=== PATIENT | female | born 1965 | race Native Hawaiian/Other Pacific Islander ===

== ENCOUNTER 2018-07-02 12:41 | Day surgery (SDC) | payer BC ==
[2018-06-27 13:45] VITALS: BMI 25.0
[2018-07-02 13:29] LABS: BASO # 0.01 K/mm3 (0.0-2.0); BASO % 0.1 % (0.0-3.0); EOS % 0.3 % (1.5-5.0); GRAN # 3.43 (1.4-6.5); GRAN % 49.9 % (50.0-68.0); HEMOGLOBIN 10.2 g/dL (12.0-16.0); LYMPH # 2.9 (1.2-3.4); LYMPH % 41.6 % (22.0-35.0); MEAN CELL VOLUME 62.8 fl (80.0-105.0); MEAN CORPUSCULAR HEMOGLOBIN 19.8 pg (25.0-35.0); MEAN CORPUSCULAR HGB CONC 31.6 g/dl (31.0-37.0); MEAN PLATELET VOLUME 9.7 fl (7.0-11.0); MONO # 0.6 (0.1-0.6); MONO % 8.1 % (1.0-6.0); RBC 5.14 10^6/uL (3.5-6.1); RED CELL DISTRIBUTION WIDTH 15.3 % (11.5-14.5); WHITE BLOOD COUNT 6.9 10^3/uL (4.5-11.0)
[2018-07-02 13:32] LABS: INR 1.11; PARTIAL THROMBOPLASTIN TIME 36.9 Seconds (25.1-36.5); PROTHROMBIN TIME 12.8 SECONDS (9.4-12.5)
[2018-07-02 13:33] LABS: BLOOD UREA NITROGEN 16 mg/dL (7-21); CALCIUM 9.6 mg/dL (8.4-10.5); GFR NON-AFRICAN AMERICAN > 60
[2018-07-02] MEDS ORDERED: Midazolam 2 MG/2 ML VIAL ONE (16:07)
[2018-07-02] MEDS ORDERED: Lidocaine 1% Inj (20ml) ONE (16:07)
[2018-07-02] MEDS ORDERED: Oxycodone/Acetaminophen 5/325 mg Tab PO PRN (17:20)
[2018-07-02] MEDS ORDERED: Sodium Chloride 0.45% 1,000 ML IV SCH (17:30)
[2018-07-02 17:43] VITALS: O2SAT 98
[2018-07-02] MEDS ORDERED: Midazolam 2 MG/2 ML VIAL IVP ONE (17:51)
[2018-07-02 18:00] VITALS: RESP 18
[2018-07-02 18:48] VITALS: TEMP 98.2
[2018-07-02 19:04] VITALS: BP 128/70; PULSE 76
--- NOTE | 2018-07-02 19:32 | CT ---
PROCEDURE: CT guided pelvic bone marrow aspiration and biopsy. HISTORY: [facility] PHYSICIAN(S): Lino Woo MD. TECHNIQUE: The relative risks and indications of the procedure were explained to the patient and consent obtained. The patient was placed prone on the CT scanner and preliminary images through the pelvis obtained. Conscious sedation and monitoring were provided throughout the procedure by a nurse. The right posterior superior iliac spine was selected for biopsy. The areas prepped and draped usual sterile fashion. 1 percent xylocaine was used to anesthetize the skin soft tissues and periosteum. And on control needle was advanced to the right posterior superior iliac spine is position confirmed with CT. The needle was advanced through the cortex. A bone marrow aspiration and blood clot was obtained. Finally a long segment core biopsy was performed with the on control needle. Slides were prepared by Dr. Ulrich IMPRESSION: 1. CT-guided pelvic bone marrow aspiration and biopsy as described above.
== END 2018-07-02 19:05 | disposition home or self-care (01) ==
LOC: SDS 12:41
PROVIDERS: ATTEND Radiology Vascular & Interventional Radiology
DX: C88.0 Waldenstrom macroglobulinemia (principal)
CPT/HCPCS: 36415; 38221; 80048; 85025; 85610; 85730; 99152; 99153; J2250; J2405; J3010; J7030

== ENCOUNTER 2018-08-22 12:10 | Outpatient (CLI) | payer BC | END 2018-08-22 12:11 | disposition home or self-care (01) | LOC: OPLAB 12:10 ==

== ENCOUNTER 2018-08-22 12:25 | Inpatient (IN) | payer BC ==
--- NOTE | 2018-08-22 14:03 | CP.PCM.CON ---
<Yuri Nixon - Last Filed: 08/22/18 14:49> History of Present Illness - History of Present Illness History of Present Illness: Robe Nixon PGY2 - ICU Consult Note Consultation: Plasmapheresis HPI: Patient is a 52 year old female with past medical history of macroglobulinemia who presented ot [facility] from her Configuration Release Manager Dr. Fernandez's office for plasmapheresis. Patient reports 2 week history of headaches without nausea, vomiting, neck stiffness, change in vision, weakness or sensory loss. Patient denies anorexia, peripheral neuropathy, weight loss, fever. Patient 12 point ROS benign other than headache and chest discomfort for which she occasionally feels. She describes sensation as intermittent and without respiratory difficulties. Patient reports she follows with Dr. Newman who first discovered elevated protein in her routine blood work 2 years prior. Patient indicates she has had previous bone marrow biopsy with Dr. Fernandez. PMH: Waldenstrom Macroglobulinemia PSH: Denies FMH: Brother from gastric cancer SOCHx: Denies smoking, ETOH, illicit drugs ALL: NKDA MEDS: Denies PMD: Dr. Newman Heme/Onc: Dr. Fernandez Review of Systems - Review of Systems All systems: reviewed and no additional remarkable complaints except (as mentioned in HPI) Past Patient History - Past Social History Smoking Status: Never Smoked Alcohol: None Drugs: Denies - CARDIAC Hx Pacemaker: No - NEUROLOGICAL Hx Paralysis: No - HEMATOLOGICAL/ONCOLOGICAL Hx Blood Transfusions: No - MUSCULOSKELETAL/RHEUMATOLOGICAL Hx Musculoskeletal Disorders: No - PSYCHIATRIC Hx Emotional Abuse: No Hx Physical Abuse: No Hx Substance Use: No - SURGICAL HISTORY Hx Surgeries: Yes - ANESTHESIA Hx Anesthesia Reactions: No Hx Malignant Hyperthermia: No Meds Allergies/Adverse Reactions: Allergies Allergy/AdvReac Type Severity Reaction Status Date / Time No Known Allergies Allergy Verified 06/27/18 13:45 Physical Exam - Constitutional Appears: Well, No Acute Distress - Head Exam Head Exam: ATRAUMATIC, NORMAL INSPECTION, NORMOCEPHALIC - Eye Exam Eye Exam: EOMI, PERRL - ENT Exam ENT Exam: Mucous Membranes Moist - Neck Exam Neck exam: Positive for: Full Rom - Respiratory Exam Respiratory Exam: Clear to Auscultation Bilateral, NORMAL BREATHING PATTERN. absent: Rales, Rhonchi - Cardiovascular Exam Cardiovascular Exam: REGULAR RHYTHM, +S1, +S2 - GI/Abdominal Exam GI & Abdominal Exam: Normal Bowel Sounds, Soft. absent: Guarding, Rebound, Rigid - Extremities Exam Extremities exam: Positive for: normal inspection. Negative for: calf tenderness, pedal edema, tenderness - Neurological Exam Neurological exam: Alert, Normal Gait, Oriented x3, Reflexes Normal - Psychiatric Exam Psychiatric exam: Normal Affect, Normal Mood - Skin Skin Exam: Dry, Intact, Normal Color, Warm Results - Labs Result Diagrams: 08/22/18 14:02 08/22/18 14:02 Assessment & Plan - Assessment and Plan (Free Text) Assessment: 52 year old female with macroglobulinemia who presented to [facility] upon request f rom her Heme/Onc physician, Dr. Fernandez for plasmapheresis. Plan: Neuro: AAOx3 Motor and Sensory grossly intact Cardio: VSS Maintain MAP>65 Pulm: Maintain SaO2 > 92% GI: GI ppx with pepcid Regular diet Renal: Maintain euvolemia, replete electrolytes Heme/Onc: Hx of Waldenstrom Macroglobulinemia - Plan for plasmapheresis today - Heme/onc with Dr. Fernandez consulted and following - IR with Dr. Woo consulted for placement of shiley catheter, follow up recs - CBC, CMP - Plasmapheresis as per Heme/Onc ID: Afebrile, no leukocytes on admission Monitor VS Psych: Stable mood and effect DVT/GI ppx: Heparin Pepcid Patient seen, case and plan discussed with attending, Dr. Godinez - Date & Time Date: 08/22/18 Time: 14:04 <Yunier Godinez - Last Filed: 08/22/18 15:51> Results - Labs Result Diagrams: 08/22/18 14:02 08/22/18 14:02 Labs: Laboratory Results - last 24 hr 08/22/18 08/22/18 08/22/18 12:00 12:00 12:00 WBC RBC Hgb Hct MCV MCH MCHC RDW Plt Count MPV Gran % Lymph % (Auto) Ford % (Auto) Eos % (Auto) Baso % (Auto) Gran # Lymph # (Auto) Ford # (Auto) Eos # (Auto) Baso # (Auto) PT 12.0 INR 1.04 APTT 29.2 Sodium 139 Potassium 3.8 Chloride 103 Carbon Dioxide 28 Anion Gap 12 BUN 16 Creatinine 0.5 L Est GFR ( Amer) > 60 Est GFR (Non-Af Amer) > 60 Random Glucose 98 Uric Acid 5.5 Calcium 9.6 Phosphorus 3.5 Magnesium 1.8 Iron 105 TIBC 320 % Saturation 33 Total Bilirubin 0.3 AST 29 ALT 22 Alkaline Phosphatase 72 Lactate Dehydrogenase 373 Troponin I Total Protein 8.9 H Albumin 4.4 Globulin 4.5 Albumin/Globulin Ratio 1.0 L 08/22/18 08/22/18 08/22/18 14:02 14:02 14:02 WBC 5.6 RBC 5.46 Hgb 10.9 L Hct 34.5 L MCV 63.2 L MCH 20.0 L MCHC 31.6 RDW 15.5 H Plt Count 399 MPV 10.2 Gran % 52.4 Lymph % (Auto) 39.5 H Ford % (Auto) 7.5 H Eos % (Auto) 0.4 L Baso % (Auto) 0.2 Gran # 2.92 Lymph # (Auto) 2.2 Ford # (Auto) 0.4 Eos # (Auto) 0.0 Baso # (Auto) 0.01 PT 12.4 INR 1.08 APTT Sodium 140 Potassium 3.5 L Chloride 103 Carbon Dioxide 27 Anion Gap 13 BUN 16 Creatinine 0.5 L Est GFR ( Amer) > 60 Est GFR (Non-Af Amer) > 60 Random Glucose 93 Uric Acid Calcium 10.0 Phosphorus Magnesium Iron TIBC % Saturation Total Bilirubin 0.4 AST 27 ALT 14 Alkaline Phosphatase 83 Lactate Dehydrogenase Troponin I < 0.01 Total Protein 9.8 H Albumin 4.8 Globulin 4.9 Albumin/Globulin Ratio 1.0 L Assessment & Plan - Assessment and Plan (Free Text) Plan: Patient seen and examined on rounds, with resident, agree with note with following additions/exceptions: Patient is 52yo female with past medical history of macroglobulinemia who presented ot [facility] from her Configuration Release Manager Dr. Fernandez's office for plasmapheresis. Patient reports 2 week history of headaches without nausea, vomiting, neck stiffness, change in vision, weakness or sensory loss. No other constitutional symptoms. Patient to have IR guided Shiley put in by Dr Woo Plasmapharesis today as per hematology GI ppx DVT ppx Monitor in MICU
[2018-08-22 14:07] LABS: BASO # 0.01 K/mm3 (0.0-2.0); BASO % 0.2 % (0.0-3.0); EOS % 0.4 % (1.5-5.0); GRAN # 2.92 (1.4-6.5); GRAN % 52.4 % (50.0-68.0); HEMOGLOBIN 10.9 g/dL (12.0-16.0); LYMPH # 2.2 (1.2-3.4); LYMPH % 39.5 % (22.0-35.0); MEAN CELL VOLUME 63.2 fl (80.0-105.0); MEAN CORPUSCULAR HGB CONC 31.6 g/dl (31.0-37.0); MEAN PLATELET VOLUME 10.2 fl (7.0-11.0); MONO # 0.4 (0.1-0.6); MONO % 7.5 % (1.0-6.0); RBC 5.46 10^6/uL (3.5-6.1); RED CELL DISTRIBUTION WIDTH 15.5 % (11.5-14.5); WHITE BLOOD COUNT 5.6 10^3/uL (4.5-11.0)
[2018-08-22 14:12] LABS: INR 1.08; PROTHROMBIN TIME 12.4 SECONDS (9.4-12.5)
[2018-08-22 14:20] LABS: ALBUMIN 4.8 g/dL (3.0-4.8); ALT/SGPT 14 U/L (7-56); AST/SGOT 27 U/L (14-36); BLOOD UREA NITROGEN 16 mg/dL (7-21); GFR NON-AFRICAN AMERICAN > 60
[2018-08-22 14:31] LABS: TROPONIN I < 0.01 ng/mL
[2018-08-22 14:37] LABS: INR 1.04; PARTIAL THROMBOPLASTIN TIME 29.2 Seconds (25.1-36.5)
[2018-08-22 14:44] VITALS: BMI 29.2
[2018-08-22 14:49] LABS: IRON 105 ug/dL (45-180)
[2018-08-22 14:51] LABS: ALBUMIN 4.4 g/dL (3.0-4.8); ALT/SGPT 22 U/L (7-56); AST/SGOT 29 U/L (14-36); BLOOD UREA NITROGEN 16 mg/dL (7-21); CALCIUM 9.6 mg/dL (8.4-10.5); GFR NON-AFRICAN AMERICAN > 60; URIC ACID 5.5 mg/dL (2.5-6.2)
[2018-08-22 14:58] LABS: % IRON SATURATION 33 % (20-55); TOTAL IRON BINDING CAPACITY 320 ug/dL (265-497)
[2018-08-22] MEDS ORDERED: Lidocaine 2% Inj (20ml) ONE (15:59)
[2018-08-22] MEDS ORDERED: Iodixanol 320 MG/ML 100 ML BOTTLE IV ONE (15:59)
[2018-08-22] MEDS ORDERED: Midazolam 2 MG/2 ML VIAL ONE ×2 (16:25→16:36)
[2018-08-22] MEDS ORDERED: Influenza Vaccine 60 mcg/0.5 mL SYR (4YR UP) IM ONE (19:41)
[2018-08-22] MEDS ORDERED: Pneumococcal 23-Valent Vaccine IM ONE (19:41)
--- NOTE | 2018-08-22 20:03 | VASCULAR ---
Date of service: 08/22/2018 PROCEDURE: Ultrasound fluoroscopically placed temporary right IJ dialysis catheter HISTORY: Waldenstroms's. Needs dialysis catheter for plasmapheresis COMPARISON: TECHNIQUE: Thought of risks and indications of the procedure explained the patient and family consent obtained. The patient was placed supine on the arteriogram table in the right neck prepped and draped usual sterile fashion. Conscious sedation monitoring were provided throughout the procedure by a nurse. Under ultrasound guidance, the right internal jugular vein was punctured with a micropuncture set. A 0.035 glidewire was advanced in the IVC. Sequential dilatation was performed with placement of a 15.5 [place] temporary dialysis catheter. Its tip is in the right atrium. The catheter flushed and injected easily. The patient tolerated the procedure well FINDINGS: IMPRESSION: Ultrasound fluoroscopically placed temporary right IJ dialysis catheter
--- NOTE | 2018-08-23 04:17 | HP ---
DATE OF EXAM: 08/22/2018 HISTORY OF PRESENT ILLNESS: This is a 52-year-old female with known diagnosis of Waldenstrom macroglobulinemia, was recently diagnosed increased serum viscosity and increased IgM of greater than 5 g. He was admitted electively to the hospital because of concerns of increasing serum viscosity related complications and sequelae with treatment where the viscosity could rise even further in reaction to the chemotherapy. Plan is to give the patient intravenous rituximab and bendamustine and then switch over to rituximab and ibrutinib as an outpatient. Because of this concern the patient was electively admitted for infection for central line, plasmapheresis and do at least 2 to 3 exchanges following which we would chemotherapy rituximab 375 mg/m2 intravenously over 5 to 6 hours as tolerated along with bendamustine given 60/m2 given on day #1 and #2 of a chemotherapy cycle and if tolerated this cycle will be given at least 21 days with a growth factor support post chemotherapy. The patient in general has been having increasing malaise, diffuse aches and pains over the last several weeks. The patient denies any history of anorexia, peripheral neuropathy, weight loss, fever. The patient's 12-point review of systems is benign other than headache and chest discomfort, which appears occasionally. She describes a sensation without any respiratory difficulties, but some degree where she become conscious of her breathing. The patient follows up with Dr. Deonte Newman, who is a primary medical doctor who will see her twice a year and was noted to have an elevated protein about 2 years prior to recent values with the IgM protein level have been rising. The patient had been advised to see a doctor, but she was procrastinating as she was feeling good. PAST MEDICAL HISTORY: The fact that the patient was seen by me at the end of 05/2018, when the patient was initially seen for an elevated protein with protein value 4055 mg/dL IgM with an M spike of 2.5. 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 In the workup the patient was also noted to have urine esterase positive plus occult blood was positive in the urine with 11 to 30 white cells based on this, she was asked to see a urologist while we were trying to do bone marrow aspiration biopsy. Urologist did a evaluation in the office including cystoscopy, no local pathology and the feeling was that the bleeding could be related to underlying diagnosis of Waldenstrom's. The patient had a breast CT scan which showed no overt abnormalities. She had a bone marrow aspiration biopsy done, which reveal the following. The patient's bone marrow aspiration biopsy was done and on 07/02/2018, showed a variable normocellular for age bone marrow being mature trilineage hematopoiesis and extensive greater than 50% of cellularity involvement by B-cell lymphoproliferative disorder intermixed with clonal plasma cell. With the clinical features of Waldenstrom macroglobulinemia, the possibility of lymphoplasmacytic lymphoma is favor. 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 Chromosome 18 is a sole anomaly of the abnormality is really specific and has been reported in most lymphoproliferative disorders and seen in patient's with 15% with Waldenstrom macroglobulinemia. The patient in addition to this had other testing done as well. 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 The patient based on this was diagnosed as having Waldenstrom macroglobulinemia with increased serum viscosity. Serum viscosity that was done on 08/16/2018, revealed a serum viscosity to be elevated at 2.1, which is high and the IgM vaccination reveal the IgM quantification to be 5540 mg/dL of IgM. The patient had workup for hepatitis screening and hepatitis screening for A, E, antigen, surface antigen, B core antibody, and C were all negative. HIV was negative. The patient also had a urine cytology done by her urologist and that was also negative for any high grade urothelial neoplasia. Based on this we felt pretty comfortable that we should proceed with initiation of plasmapheresis prior to initiation of chemotherapy. There is some data and evidence in the literature the rituximab can bump up the values of IgM during the course of initiation with rituximab specially when the IgM values are greater than 4.5 grams. SOCIAL HISTORY: Noncontributory. FAMILY HISTORY: The patient brother from gastric cancer. She has a large family with 4 or 5 sisters, all of them in reasonably good health. ALLERGIES: THE PATIENT HAS NO KNOWN ALLERGIES. MEDICATIONS: The patient specifically not on any medicines. PAST SURGICAL HISTORY: Last colonoscopy was done recently which was negative. The patient has history of with 2 boys. She had history of back problems discogenic disease. She has never been hospitalized. The patient had an ultrasound of the liver, which showed hepatic steatosis. On PET/CT as I mentioned, which was done in outpatient imaging center showed no evidence of enlarged hypermetabolic lymph nodes. The abdomen, pelvis, and inguinal region, no ascites seen and there is no evidence of hypermetabolic osseous lesions as well on the examination of the bone and the bone marrow. REVIEW OF SYSTEMS: systems review of system was done, everything is negative expect what is mentioned in the HPI. MUSCULOSKELETAL: The patient does complains significant aches and pains involving multiple joints and between the shoulders, the elbows, the knees, and the hips more recently over the last few . Except for the patient has had no major surgical history. She has had no anesthetic reactions in the past. PHYSICAL EXAMINATION: GENERAL: The patient is awake, alert, and oriented in no significant distress. VITAL SIGNS: Stable. On admission; heart rate is 84, respirations 20 per minute, O2 sat is 99% on room air, blood pressure on admission is 143/110. HEENT: Head is normocephalic, atraumatic. Conjunctivae pale. Sclerae are anicteric. Pupils are equal reactive to light and accommodation. The patient denies any visual issues at this point in time. Examination of the oropharynx reveal no oropharyngeal lesion. Tongue is moist. No ulcerations are noted. NECK: Supple. There is no adenopathy. No jugular venous distension noted. LUNGS: Clear to percussion and auscultation. CARDIOVASCULAR: Reveals PMI in the fifth intercostal space inside the midclavicular line. S1, S2 normal. No gallop or murmur is heard. ABDOMEN: Soft, nontender. Liver and spleen not palpable. Bowel sounds are present. No rebound, rigidity, or guarding is noted. EXTREMITIES: Reveals no cyanosis, clubbing, or edema. NEUROLOGIC: Reveals no focal deficits. The patient denies any history of seizures. Plantar are flexors. GENITOURINARY: Deferred. RECTAL: Deferred. LABORATORY DATA: From today; reveals white count of 5.6, hemoglobin 10.9, hematocrit 34.5, MCV of 63.2, and platelet count of 399,000. Coags are within normal limits. PT is 12.4, INR is 1.08, fibrinogen is 303. Electrolytes reveal sodium of 140, K is slightly low at 3.5, BUN and creatinine is normal, total protein is 9.8 with albumin of 4.8, AG ratio is 1. ASSESSMENT, NOTES, AND PLAN: The patient has Waldenstrom macroglobulinemia, lymphoplasmacytic lymphoma variant. The patient has an elevated serum viscosity with an elevated IgM of more than 5600 mg. Based on these findings, the patient has been setup for insertion of a central line or a dialysis catheter following, which the patient will get plasmapheresis. Plan is to exchange one plasma exchange for every other day and the volume that will be exchanged will be about at 3 liters and the replacement volume will be 5% albumin in study. The patient is also going to get gram of calcium gluconate as the citrate in the for the phoresis that could artifactually lower the calcium. I have instructed the patient that if she has any perioral numbness or anesthesia or tingling and numbness or sensation of feeling cold, do let us know. We are going to monitor the patient very carefully every 15 minutes during the entire course of the plasmapheresis. Duration time for the plasmapheresis was about 72 to 75 minutes. The patient will be monitored for any hemodynamic changes during this process. We have requested for about 2.5 or 3 grams of albumin during this whole process, 5% albumin. It is preferred twice of 5% albumin along with saline for plasma exchange. Since the patient's IgM is elevated 75% of the IgM is extravascular, so at least 2 exchanges will deplete the IgM values by more than 60%, so 3 should help us a lot while we are initiating systemic chemotherapy. The patient going to be getting rituximab and bendamustine tomorrow and she is also going to get bendamustine the day after and plan is to give her exchange paresis on day #1, day #3, and day #5 , so three times every other day. While in again one plasma exchange with exchange of 3 liters. I have discussed my findings in detail with the patient and her entire family, consent for the plasmapheresis was obtained. Consent for systemic chemotherapy was obtained. The patient has agreed to start her prophylactically on IV PPI. She is going to be on a cardiac diet. We are going to consult Dr. Newman. We are going to check her coags every day along with CBC and chemistry on a daily basis. Routine post exam instructions have been given to the patient. The patient going to be monitored very carefully over the next 3 to 5 days. I have instructed the patient that we will monitor her very carefully. I am going to put in consult for the home health nurse licensed practical to watch for fluid electrolyte balances as well. Kendall Fernandez MD
[2018-08-23 06:23] LABS: BASO # 0.01 K/mm3 (0.0-2.0); BASO % 0.2 % (0.0-3.0); EOS % 0.2 % (1.5-5.0); GRAN # 2.62 (1.4-6.5); GRAN % 53.7 % (50.0-68.0); LYMPH # 1.8 (1.2-3.4); LYMPH % 37.1 % (22.0-35.0); MEAN CELL VOLUME 62.6 fl (80.0-105.0); MEAN CORPUSCULAR HEMOGLOBIN 19.6 pg (25.0-35.0); MEAN CORPUSCULAR HGB CONC 31.3 g/dl (31.0-37.0); MEAN PLATELET VOLUME 10.1 fl (7.0-11.0); MONO # 0.4 (0.1-0.6); MONO % 8.8 % (1.0-6.0); RBC 5.11 10^6/uL (3.5-6.1); RED CELL DISTRIBUTION WIDTH 15.3 % (11.5-14.5); WHITE BLOOD COUNT 4.9 10^3/uL (4.5-11.0)
[2018-08-23 06:31] LABS: INR 1.26; PROTHROMBIN TIME 14.5 SECONDS (9.4-12.5)
--- NOTE | 2018-08-23 08:08 | CP.CCUPN ---
<Yuri Nixon - Last Filed: 08/23/18 11:57> CCU Subjective - Physician Review Subjective (Free Text): 08/23/18 08:27 Robe Nixon PGY2 - ICU Progress Note Patient seen and examined this AM. No acute events overnight. Patient tolerated plasmapheresis last evening. Reports continued fatigue and headache symptoms from admission. Patient denies shortness of breath, chest pain, abdominal pain, weakness, sensory deficits, perioral numbness, tingling in hands or feet. CCU Objective - Vital Signs / Intake & Output Vital Signs (Last 4 hours): Vital Signs Temp Pulse Resp BP Pulse Ox 08/23/18 06:00 98.5 F 87 20 107/39 L 97 Intake and Output (Last 8hrs): Intake & Output 08/22/18 08/23/18 08/23/18 22:59 06:59 14:59 Intake Total 0 Balance 0 Weight 160 lb 160 lb Intake: Oral 0 Other: Voiding Method Toilet # Bowel Movements 0 - Physical Exam Head: Positive for: Atraumatic, Normocephalic Pupils: Positive for: PERRL Extroacular Muscles: Positive for: EOMI Conjunctiva: Positive for: Normal Mouth: Positive for: Moist Mucous Membranes Neck: Positive for: Normal Range of Motion. Negative for: JVD Respiratory/Chest: Positive for: Clear to Auscultation, Good Air Exchange, Respiratory Distress, Accessory Muscle Use Cardiovascular: Positive for: Regular Rate and Rhythm, Normal S1, S2. Negative for: Murmurs Abdomen: Positive for: Normal Bowel Sounds. Negative for: Tenderness, Distention, Peritoneal Signs, Rebound, Guarding Upper Extremity: Positive for: Normal ROM. Negative for: Cyanosis, Edema, Tenderness, Swelling, Erythema Lower Extremity: Positive for: Normal ROM. Negative for: Normal Inspection, Edema, Lisa's Sign, Tenderness, Swelling Neurological: Positive for: GCS=15, CN II-XII Intact, Speech Normal, Motor Func Grossly Intact, Normal Sensory Function Skin: Positive for: Warm, Dry Psychiatric: Positive for: Alert, Oriented x 3, Normal Insight, Normal Concentration - Medications Active Medications: Active Medications Generic Name Dose Route Start Last Admin Trade Name Freq PRN Reason Stop Dose Admin Albumin Human 3,000 mls @ 2,000 mls/hr 08/22/18 17:00 08/22/18 18:27 Albumin Human 5% (12.5 Gm/250 Ml) IV 08/26/18 18:29 2,000 mls/hr QOD@1700 LINDA Administration Calcium Gluconate 1,000 mg/ 110 mls @ 146.667 mls/hr 08/22/18 17:15 08/22/18 18:34 Sodium Chloride IVPB 08/26/18 10:44 146.667 mls/hr QOD LINDA Administration Pantoprazole Sodium 20 mg 08/22/18 22:00 Protonix Inj IVP Q12 LINDA - Patient Studies Lab Studies: Lab Studies 08/23/18 08/23/18 08/22/18 Range/Units 05:30 05:30 15:00 WBC 4.9 (4.5-11.0) 10^3/uL RBC 5.11 (3.5-6.1) 10^6/uL Hgb 10.0 L (12.0-16.0) g/dL Hct 32.0 L (36.0-48.0) % MCV 62.6 L (80.0-105.0) fl MCH 19.6 L (25.0-35.0) pg MCHC 31.3 (31.0-37.0) g/dl RDW 15.3 H (11.5-14.5) % Plt Count 302 (120.0-450.0) 10^3/uL MPV 10.1 (7.0-11.0) fl Gran % 53.7 (50.0-68.0) % Lymph % (Auto) 37.1 H (22.0-35.0) % [place] % (Auto) 8.8 H (1.0-6.0) % Eos % (Auto) 0.2 L (1.5-5.0) % Baso % (Auto) 0.2 (0.0-3.0) % Gran # 2.62 (1.4-6.5) Lymph # (Auto) 1.8 (1.2-3.4) [place] # (Auto) 0.4 (0.1-0.6) Eos # (Auto) 0.0 (0.0-0.7) Baso # (Auto) 0.01 (0.0-2.0) K/mm3 PT 14.5 H (9.4-12.5) SECONDS INR 1.26 APTT 31.0 (25.1-36.5) Seconds Fibrinogen 303 (200-400) mg/dl Sodium (132-148) mmol/L Potassium (3.6-5.0) mmol/L Chloride (98-107) mmol/L Carbon Dioxide (21-33) mmol/L Anion Gap (10-20) BUN (7-21) mg/dL Creatinine (0.7-1.2) mg/dl Est GFR ( Amer) Est GFR (Non-Af Amer) Random Glucose (70-110) mg/dL Uric Acid (2.5-6.2) mg/dL Calcium (8.4-10.5) mg/dL Phosphorus (2.5-4.5) mg/dL Magnesium (1.7-2.2) mg/dL Iron (45-180) ug/dL TIBC (265-497) ug/dL % Saturation (20-55) % Total Bilirubin (0.2-1.3) mg/dL AST (14-36) U/L ALT (7-56) U/L Alkaline Phosphatase (38-126) U/L Lactate Dehydrogenase (333-699) U/L Troponin I ng/mL Total Protein (5.8-8.3) g/dL Albumin (3.0-4.8) g/dL Globulin gm/dL Albumin/Globulin Ratio (1.1-1.8) 08/22/18 08/22/18 08/22/18 Range/Units 14:02 14:02 14:02 WBC 5.6 (4.5-11.0) 10^3/uL RBC 5.46 (3.5-6.1) 10^6/uL Hgb 10.9 L (12.0-16.0) g/dL Hct 34.5 L (36.0-48.0) % MCV 63.2 L (80.0-105.0) fl MCH 20.0 L (25.0-35.0) pg MCHC 31.6 (31.0-37.0) g/dl RDW 15.5 H (11.5-14.5) % Plt Count 399 (120.0-450.0) 10^3/uL MPV 10.2 (7.0-11.0) fl Gran % 52.4 (50.0-68.0) % Lymph % (Auto) 39.5 H (22.0-35.0) % [place] % (Auto) 7.5 H (1.0-6.0) % Eos % (Auto) 0.4 L (1.5-5.0) % Baso % (Auto) 0.2 (0.0-3.0) % Gran # 2.92 (1.4-6.5) Lymph # (Auto) 2.2 (1.2-3.4) [place] # (Auto) 0.4 (0.1-0.6) Eos # (Auto) 0.0 (0.0-0.7) Baso # (Auto) 0.01 (0.0-2.0) K/mm3 PT 12.4 (9.4-12.5) SECONDS INR 1.08 APTT (25.1-36.5) Seconds Fibrinogen (200-400) mg/dl Sodium 140 (132-148) mmol/L Potassium 3.5 L (3.6-5.0) mmol/L Chloride 103 (98-107) mmol/L Carbon Dioxide 27 (21-33) mmol/L Anion Gap 13 (10-20) BUN 16 (7-21) mg/dL Creatinine 0.5 L (0.7-1.2) mg/dl Est GFR ( Amer) > 60 Est GFR (Non-Af Amer) > 60 Random Glucose 93 (70-110) mg/dL Uric Acid (2.5-6.2) mg/dL Calcium 10.0 (8.4-10.5) mg/dL Phosphorus (2.5-4.5) mg/dL Magnesium (1.7-2.2) mg/dL Iron (45-180) ug/dL TIBC (265-497) ug/dL % Saturation (20-55) % Total Bilirubin 0.4 (0.2-1.3) mg/dL AST 27 (14-36) U/L ALT 14 (7-56) U/L Alkaline Phosphatase 83 (38-126) U/L Lactate Dehydrogenase (333-699) U/L Troponin I < 0.01 ng/mL Total Protein 9.8 H (5.8-8.3) g/dL Albumin 4.8 (3.0-4.8) g/dL Globulin 4.9 gm/dL Albumin/Globulin Ratio 1.0 L (1.1-1.8) 08/22/18 08/22/18 08/22/18 Range/Units 12:00 12:00 12:00 WBC (4.5-11.0) 10^3/uL RBC (3.5-6.1) 10^6/uL Hgb (12.0-16.0) g/dL Hct (36.0-48.0) % MCV (80.0-105.0) fl MCH (25.0-35.0) pg MCHC (31.0-37.0) g/dl RDW (11.5-14.5) % Plt Count (120.0-450.0) 10^3/uL MPV (7.0-11.0) fl Gran % (50.0-68.0) % Lymph % (Auto) (22.0-35.0) % [place] % (Auto) (1.0-6.0) % Eos % (Auto) (1.5-5.0) % Baso % (Auto) (0.0-3.0) % Gran # (1.4-6.5) Lymph # (Auto) (1.2-3.4) [place] # (Auto) (0.1-0.6) Eos # (Auto) (0.0-0.7) Baso # (Auto) (0.0-2.0) K/mm3 PT 12.0 (9.4-12.5) SECONDS INR 1.04 APTT 29.2 (25.1-36.5) Seconds Fibrinogen (200-400) mg/dl Sodium 139 (132-148) mmol/L Potassium 3.8 (3.6-5.0) mmol/L Chloride 103 (98-107) mmol/L Carbon Dioxide 28 (21-33) mmol/L Anion Gap 12 (10-20) BUN 16 (7-21) mg/dL Creatinine 0.5 L (0.7-1.2) mg/dl Est GFR ( Amer) > 60 Est GFR (Non-Af Amer) > 60 Random Glucose 98 (70-110) mg/dL Uric Acid 5.5 (2.5-6.2) mg/dL Calcium 9.6 (8.4-10.5) mg/dL Phosphorus 3.5 (2.5-4.5) mg/dL Magnesium 1.8 (1.7-2.2) mg/dL Iron 105 (45-180) ug/dL TIBC 320 (265-497) ug/dL % Saturation 33 (20-55) % Total Bilirubin 0.3 (0.2-1.3) mg/dL AST 29 (14-36) U/L ALT 22 (7-56) U/L Alkaline Phosphatase 72 (38-126) U/L Lactate Dehydrogenase 373 (333-699) U/L Troponin I ng/mL Total Protein 8.9 H (5.8-8.3) g/dL Albumin 4.4 (3.0-4.8) g/dL Globulin 4.5 gm/dL Albumin/Globulin Ratio 1.0 L (1.1-1.8) Laboratory Results - last 24 hr 08/22/18 08/22/18 08/22/18 12:00 12:00 12:00 WBC RBC Hgb Hct MCV MCH MCHC RDW Plt Count MPV Gran % Lymph % (Auto) [place] % (Auto) Eos % (Auto) Baso % (Auto) Gran # Lymph # (Auto) [place] # (Auto) Eos # (Auto) Baso # (Auto) PT 12.0 INR 1.04 APTT 29.2 Fibrinogen Sodium 139 Potassium 3.8 Chloride 103 Carbon Dioxide 28 Anion Gap 12 BUN 16 Creatinine 0.5 L Est GFR ( Amer) > 60 Est GFR (Non-Af Amer) > 60 Random Glucose 98 Uric Acid 5.5 Calcium 9.6 Phosphorus 3.5 Magnesium 1.8 Iron 105 TIBC 320 % Saturation 33 Total Bilirubin 0.3 AST 29 ALT 22 Alkaline Phosphatase 72 Lactate Dehydrogenase 373 Troponin I Total Protein 8.9 H Albumin 4.4 Globulin 4.5 Albumin/Globulin Ratio 1.0 L 08/22/18 08/22/18 08/22/18 14:02 14:02 14:02 WBC 5.6 RBC 5.46 Hgb 10.9 L Hct 34.5 L MCV 63.2 L MCH 20.0 L MCHC 31.6 RDW 15.5 H Plt Count 399 MPV 10.2 Gran % 52.4 Lymph % (Auto) 39.5 H [place] % (Auto) 7.5 H Eos % (Auto) 0.4 L Baso % (Auto) 0.2 Gran # 2.92 Lymph # (Auto) 2.2 [place] # (Auto) 0.4 Eos # (Auto) 0.0 Baso # (Auto) 0.01 PT 12.4 INR 1.08 APTT Fibrinogen Sodium 140 Potassium 3.5 L Chloride 103 Carbon Dioxide 27 Anion Gap 13 BUN 16 Creatinine 0.5 L Est GFR ( Amer) > 60 Est GFR (Non-Af Amer) > 60 Random Glucose 93 Uric Acid Calcium 10.0 Phosphorus Magnesium Iron TIBC % Saturation Total Bilirubin 0.4 AST 27 ALT 14 Alkaline Phosphatase 83 Lactate Dehydrogenase Troponin I < 0.01 Total Protein 9.8 H Albumin 4.8 Globulin 4.9 Albumin/Globulin Ratio 1.0 L 08/22/18 08/23/18 08/23/18 15:00 05:30 05:30 WBC 4.9 RBC 5.11 Hgb 10.0 L Hct 32.0 L MCV 62.6 L MCH 19.6 L MCHC 31.3 RDW 15.3 H Plt Count 302 MPV 10.1 Gran % 53.7 Lymph % (Auto) 37.1 H [place] % (Auto) 8.8 H Eos % (Auto) 0.2 L Baso % (Auto) 0.2 Gran # 2.62 Lymph # (Auto) 1.8 [place] # (Auto) 0.4 Eos # (Auto) 0.0 Baso # (Auto) 0.01 PT 14.5 H INR 1.26 APTT 31.0 Fibrinogen 303 Sodium Potassium Chloride Carbon Dioxide Anion Gap BUN Creatinine Est GFR ( Amer) Est GFR (Non-Af Amer) Random Glucose Uric Acid Calcium Phosphorus Magnesium Iron TIBC % Saturation Total Bilirubin AST ALT Alkaline Phosphatase Lactate Dehydrogenase Troponin I Total Protein Albumin Globulin Albumin/Globulin Ratio Radiology Impressions: Radiology Impressions Interventional Vascular Procedure 08/22/18 15:46 IMPRESSION: Ultrasound fluoroscopically placed temporary right IJ dialysis catheter Review of Systems - Review of Systems All systems: reviewed and no additional remarkable complaints except (as mentioned subjective) Critical Care Progress Note - Nutrition Nutrition: Nutrition Category Date Time Status Heart Healthy Diet [DIET] Diets 08/22/18 Dinner Active Assessment/Plan - Assessment and Plan (Free Text) Assessment: 52 year old female with Waldenstrom macroglobulinemia who was admitted to hospital for increased IgM levels greater than 5 grams and concern for potential complications with her chemotherapy regiment by her oncologist. Patient underwent plasmapheresis last evening and tolerated well Plan: Neuro: AAOx3 Motor and Sensory grossly intact Complains of headaches, tylenol prn Cardio: VSS Maintain MAP>65 Pulm: Maintain SaO2 > 92% GI: GI ppx with pepcid Regular diet Renal: Maintain euvolemia, replete electrolytes Nephrology consulted Heme/Onc: Hx of Waldenstrom Macroglobulinemia - Heme/onc with Dr. Fernandez consulted and following - IR placed Shiley catheter yesterday, site clean/dry/intact - CBC, CMP daily - Plasmapheresis as per Heme/Onc - Continue to monitor patient in ICU for tumor lysis syndrome and side effects of rituximab,plasmapheresis tx ID: Afebrile, no leukocytes on admission Monitor VS Psych: Stable mood and effect DVT/GI ppx: Edward score: 3 Protonix IV Patient seen, case and plan discussed with attending, Dr. Godinez - Date & Time Date: 08/23/18 Time: 08:31 <Yunier Godinez - Last Filed: 08/23/18 13:02> CCU Objective - Vital Signs / Intake & Output Intake and Output (Last 8hrs): Intake & Output 08/22/18 08/23/18 08/23/18 22:59 06:59 14:59 Intake Total 0 Balance 0 Weight 160 lb 160 lb Intake: Oral 0 Other: Voiding Method Toilet # Bowel Movements 0 - Medications Active Medications: Active Medications Generic Name Dose Route Start Last Admin Trade Name Freq PRN Reason Stop Dose Admin Acetaminophen 650 mg 08/23/18 08:14 08/23/18 08:41 Tylenol 325mg Tab PO 650 mg Q6H PRN Administration Headache Albumin Human 3,000 mls @ 2,000 mls/hr 08/22/18 17:00 08/22/18 18:27 Albumin Human 5% (12.5 Gm/250 Ml) IV 08/26/18 18:29 2,000 mls/hr QOD@1700 LINDA Administration Calcium Gluconate 1,000 mg/ 110 mls @ 146.667 mls/hr 08/22/18 17:15 08/22/18 18:34 Sodium Chloride IVPB 08/26/18 10:44 146.667 mls/hr QOD LINDA Administration Rituximab 664 mg/ Sodium 500 mls @ 83.333 mls/hr 08/23/18 11:00 Chloride IV 08/23/18 16:59 ONCE ONE Sodium Chloride 1,000 mls @ 166.667 mls/hr 08/23/18 11:00 08/23/18 11:54 Sodium Chloride 0.9% IV 08/23/18 16:59 166.667 mls/hr .Q6H ONE Administration Pantoprazole Sodium 20 mg 08/22/18 22:00 08/23/18 09:12 Protonix Inj IVP 20 mg Q12 LINDA Administration - Patient Studies Lab Studies: Lab Studies 08/23/18 08/23/18 08/23/18 Range/Units 06:30 05:30 05:30 WBC 4.9 (4.5-11.0) 10^3/uL RBC 5.11 (3.5-6.1) 10^6/uL Hgb 10.0 L (12.0-16.0) g/dL Hct 32.0 L (36.0-48.0) % MCV 62.6 L (80.0-105.0) fl MCH 19.6 L (25.0-35.0) pg MCHC 31.3 (31.0-37.0) g/dl RDW 15.3 H (11.5-14.5) % Plt Count 302 (120.0-450.0) 10^3/uL MPV 10.1 (7.0-11.0) fl Gran % 53.7 (50.0-68.0) % Lymph % (Auto) 37.1 H (22.0-35.0) % [place] % (Auto) 8.8 H (1.0-6.0) % Eos % (Auto) 0.2 L (1.5-5.0) % Baso % (Auto) 0.2 (0.0-3.0) % Gran # 2.62 (1.4-6.5) Lymph # (Auto) 1.8 (1.2-3.4) [place] # (Auto) 0.4 (0.1-0.6) Eos # (Auto) 0.0 (0.0-0.7) Baso # (Auto) 0.01 (0.0-2.0) K/mm3 PT 14.5 H (9.4-12.5) SECONDS INR 1.26 APTT 31.0 (25.1-36.5) Seconds Fibrinogen (200-400) mg/dl Sodium 142 (132-148) mmol/L Potassium 3.7 (3.6-5.0) mmol/L Chloride 109 H (98-107) mmol/L Carbon Dioxide 25 (21-33) mmol/L Anion Gap 12 (10-20) BUN 9 (7-21) mg/dL Creatinine 0.5 L (0.7-1.2) mg/dl Est GFR ( Amer) > 60 Est GFR (Non-Af Amer) > 60 Random Glucose 98 (70-110) mg/dL Uric Acid (2.5-6.2) mg/dL Calcium 9.3 (8.4-10.5) mg/dL Phosphorus (2.5-4.5) mg/dL Magnesium (1.7-2.2) mg/dL Iron (45-180) ug/dL TIBC (265-497) ug/dL % Saturation (20-55) % Total Bilirubin 0.7 (0.2-1.3) mg/dL AST 16 (14-36) U/L ALT 21 (7-56) U/L Alkaline Phosphatase 38 D (38-126) U/L Lactate Dehydrogenase (333-699) U/L Troponin I ng/mL Total Protein 6.7 (5.8-8.3) g/dL Albumin 4.4 (3.0-4.8) g/dL Globulin 2.3 gm/dL Albumin/Globulin Ratio 1.9 H (1.1-1.8) 08/22/18 08/22/18 08/22/18 Range/Units 15:00 14:02 14:02 WBC (4.5-11.0) 10^3/uL RBC (3.5-6.1) 10^6/uL Hgb (12.0-16.0) g/dL Hct (36.0-48.0) % MCV (80.0-105.0) fl MCH (25.0-35.0) pg MCHC (31.0-37.0) g/dl RDW (11.5-14.5) % Plt Count (120.0-450.0) 10^3/uL MPV (7.0-11.0) fl Gran % (50.0-68.0) % Lymph % (Auto) (22.0-35.0) % [place] % (Auto) (1.0-6.0) % Eos % (Auto) (1.5-5.0) % Baso % (Auto) (0.0-3.0) % Gran # (1.4-6.5) Lymph # (Auto) (1.2-3.4) [place] # (Auto) (0.1-0.6) Eos # (Auto) (0.0-0.7) Baso # (Auto) (0.0-2.0) K/mm3 PT 12.4 (9.4-12.5) SECONDS INR 1.08 APTT (25.1-36.5) Seconds Fibrinogen 303 (200-400) mg/dl Sodium 140 (132-148) mmol/L Potassium 3.5 L (3.6-5.0) mmol/L Chloride 103 (98-107) mmol/L Carbon Dioxide 27 (21-33) mmol/L Anion Gap 13 (10-20) BUN 16 (7-21) mg/dL Creatinine 0.5 L (0.7-1.2) mg/dl Est GFR ( Amer) > 60 Est GFR (Non-Af Amer) > 60 Random Glucose 93 (70-110) mg/dL Uric Acid (2.5-6.2) mg/dL Calcium 10.0 (8.4-10.5) mg/dL Phosphorus (2.5-4.5) mg/dL Magnesium (1.7-2.2) mg/dL Iron (45-180) ug/dL TIBC (265-497) ug/dL % Saturation (20-55) % Total Bilirubin 0.4 (0.2-1.3) mg/dL AST 27 (14-36) U/L ALT 14 (7-56) U/L Alkaline Phosphatase 83 (38-126) U/L Lactate Dehydrogenase (333-699) U/L Troponin I < 0.01 ng/mL Total Protein 9.8 H (5.8-8.3) g/dL Albumin 4.8 (3.0-4.8) g/dL Globulin 4.9 gm/dL Albumin/Globulin Ratio 1.0 L (1.1-1.8) 08/22/18 08/22/18 08/22/18 Range/Units 14:02 12:00 12:00 WBC 5.6 (4.5-11.0) 10^3/uL RBC 5.46 (3.5-6.1) 10^6/uL Hgb 10.9 L (12.0-16.0) g/dL Hct 34.5 L (36.0-48.0) % MCV 63.2 L (80.0-105.0) fl MCH 20.0 L (25.0-35.0) pg MCHC 31.6 (31.0-37.0) g/dl RDW 15.5 H (11.5-14.5) % Plt Count 399 (120.0-450.0) 10^3/uL MPV 10.2 (7.0-11.0) fl Gran % 52.4 (50.0-68.0) % Lymph % (Auto) 39.5 H (22.0-35.0) % [place] % (Auto) 7.5 H (1.0-6.0) % Eos % (Auto) 0.4 L (1.5-5.0) % Baso % (Auto) 0.2 (0.0-3.0) % Gran # 2.92 (1.4-6.5) Lymph # (Auto) 2.2 (1.2-3.4) [place] # (Auto) 0.4 (0.1-0.6) Eos # (Auto) 0.0 (0.0-0.7) Baso # (Auto) 0.01 (0.0-2.0) K/mm3 PT 12.0 (9.4-12.5) SECONDS INR 1.04 APTT 29.2 (25.1-36.5) Seconds Fibrinogen (200-400) mg/dl Sodium (132-148) mmol/L Potassium (3.6-5.0) mmol/L Chloride (98-107) mmol/L Carbon Dioxide (21-33) mmol/L Anion Gap (10-20) BUN (7-21) mg/dL Creatinine (0.7-1.2) mg/dl Est GFR ( Amer) Est GFR (Non-Af Amer) Random Glucose (70-110) mg/dL Uric Acid (2.5-6.2) mg/dL Calcium (8.4-10.5) mg/dL Phosphorus (2.5-4.5) mg/dL Magnesium (1.7-2.2) mg/dL Iron 105 (45-180) ug/dL TIBC 320 (265-497) ug/dL % Saturation 33 (20-55) % Total Bilirubin (0.2-1.3) mg/dL AST (14-36) U/L ALT (7-56) U/L Alkaline Phosphatase (38-126) U/L Lactate Dehydrogenase (333-699) U/L Troponin I ng/mL Total Protein (5.8-8.3) g/dL Albumin (3.0-4.8) g/dL Globulin gm/dL Albumin/Globulin Ratio (1.1-1.8) 08/22/18 Range/Units 12:00 WBC (4.5-11.0) 10^3/uL RBC (3.5-6.1) 10^6/uL Hgb (12.0-16.0) g/dL Hct (36.0-48.0) % MCV (80.0-105.0) fl MCH (25.0-35.0) pg MCHC (31.0-37.0) g/dl RDW (11.5-14.5) % Plt Count (120.0-450.0) 10^3/uL MPV (7.0-11.0) fl Gran % (50.0-68.0) % Lymph % (Auto) (22.0-35.0) % [place] % (Auto) (1.0-6.0) % Eos % (Auto) (1.5-5.0) % Baso % (Auto) (0.0-3.0) % Gran # (1.4-6.5) Lymph # (Auto) (1.2-3.4) [place] # (Auto) (0.1-0.6) Eos # (Auto) (0.0-0.7) Baso # (Auto) (0.0-2.0) K/mm3 PT (9.4-12.5) SECONDS INR APTT (25.1-36.5) Seconds Fibrinogen (200-400) mg/dl Sodium 139 (132-148) mmol/L Potassium 3.8 (3.6-5.0) mmol/L Chloride 103 (98-107) mmol/L Carbon Dioxide 28 (21-33) mmol/L Anion Gap 12 (10-20) BUN 16 (7-21) mg/dL Creatinine 0.5 L (0.7-1.2) mg/dl Est GFR ( Amer) > 60 Est GFR (Non-Af Amer) > 60 Random Glucose 98 (70-110) mg/dL Uric Acid 5.5 (2.5-6.2) mg/dL Calcium 9.6 (8.4-10.5) mg/dL Phosphorus 3.5 (2.5-4.5) mg/dL Magnesium 1.8 (1.7-2.2) mg/dL Iron (45-180) ug/dL TIBC (265-497) ug/dL % Saturation (20-55) % Total Bilirubin 0.3 (0.2-1.3) mg/dL AST 29 (14-36) U/L ALT 22 (7-56) U/L Alkaline Phosphatase 72 (38-126) U/L Lactate Dehydrogenase 373 (333-699) U/L Troponin I ng/mL Total Protein 8.9 H (5.8-8.3) g/dL Albumin 4.4 (3.0-4.8) g/dL Globulin 4.5 gm/dL Albumin/Globulin Ratio 1.0 L (1.1-1.8) Laboratory Results - last 24 hr 08/22/18 08/22/18 08/22/18 12:00 12:00 12:00 WBC RBC Hgb Hct MCV MCH MCHC RDW Plt Count MPV Gran % Lymph % (Auto) [place] % (Auto) Eos % (Auto) Baso % (Auto) Gran # Lymph # (Auto) [place] # (Auto) Eos # (Auto) Baso # (Auto) PT 12.0 INR 1.04 APTT 29.2 Fibrinogen Sodium 139 Potassium 3.8 Chloride 103 Carbon Dioxide 28 Anion Gap 12 BUN 16 Creatinine 0.5 L Est GFR ( Amer) > 60 Est GFR (Non-Af Amer) > 60 Random Glucose 98 Uric Acid 5.5 Calcium 9.6 Phosphorus 3.5 Magnesium 1.8 Iron 105 TIBC 320 % Saturation 33 Total Bilirubin 0.3 AST 29 ALT 22 Alkaline Phosphatase 72 Lactate Dehydrogenase 373 Troponin I Total Protein 8.9 H Albumin 4.4 Globulin 4.5 Albumin/Globulin Ratio 1.0 L 08/22/18 08/22/18 08/22/18 14:02 14:02 14:02 WBC 5.6 RBC 5.46 Hgb 10.9 L Hct 34.5 L MCV 63.2 L MCH 20.0 L MCHC 31.6 RDW 15.5 H Plt Count 399 MPV 10.2 Gran % 52.4 Lymph % (Auto) 39.5 H [place] % (Auto) 7.5 H Eos % (Auto) 0.4 L Baso % (Auto) 0.2 Gran # 2.92 Lymph # (Auto) 2.2 [place] # (Auto) 0.4 Eos # (Auto) 0.0 Baso # (Auto) 0.01 PT 12.4 INR 1.08 APTT Fibrinogen Sodium 140 Potassium 3.5 L Chloride 103 Carbon Dioxide 27 Anion Gap 13 BUN 16 Creatinine 0.5 L Est GFR ( Amer) > 60 Est GFR (Non-Af Amer) > 60 Random Glucose 93 Uric Acid Calcium 10.0 Phosphorus Magnesium Iron TIBC % Saturation Total Bilirubin 0.4 AST 27 ALT 14 Alkaline Phosphatase 83 Lactate Dehydrogenase Troponin I < 0.01 Total Protein 9.8 H Albumin 4.8 Globulin 4.9 Albumin/Globulin Ratio 1.0 L 08/22/18 08/23/18 08/23/18 15:00 05:30 05:30 WBC 4.9 RBC 5.11 Hgb 10.0 L Hct 32.0 L MCV 62.6 L MCH 19.6 L MCHC 31.3 RDW 15.3 H Plt Count 302 MPV 10.1 Gran % 53.7 Lymph % (Auto) 37.1 H [place] % (Auto) 8.8 H Eos % (Auto) 0.2 L Baso % (Auto) 0.2 Gran # 2.62 Lymph # (Auto) 1.8 [place] # (Auto) 0.4 Eos # (Auto) 0.0 Baso # (Auto) 0.01 PT 14.5 H INR 1.26 APTT 31.0 Fibrinogen 303 Sodium Potassium Chloride Carbon Dioxide Anion Gap BUN Creatinine Est GFR ( Amer) Est GFR (Non-Af Amer) Random Glucose Uric Acid Calcium Phosphorus Magnesium Iron TIBC % Saturation Total Bilirubin AST ALT Alkaline Phosphatase Lactate Dehydrogenase Troponin I Total Protein Albumin Globulin Albumin/Globulin Ratio 08/23/18 06:30 WBC RBC Hgb Hct MCV MCH MCHC RDW Plt Count MPV Gran % Lymph % (Auto) [place] % (Auto) Eos % (Auto) Baso % (Auto) Gran # Lymph # (Auto) [place] # (Auto) Eos # (Auto) Baso # (Auto) PT INR APTT Fibrinogen Sodium 142 Potassium 3.7 Chloride 109 H Carbon Dioxide 25 Anion Gap 12 BUN 9 Creatinine 0.5 L Est GFR ( Amer) > 60 Est GFR (Non-Af Amer) > 60 Random Glucose 98 Uric Acid Calcium 9.3 Phosphorus Magnesium Iron TIBC % Saturation Total Bilirubin 0.7 AST 16 ALT 21 Alkaline Phosphatase 38 D Lactate Dehydrogenase Troponin I Total Protein 6.7 Albumin 4.4 Globulin 2.3 Albumin/Globulin Ratio 1.9 H Radiology Impressions: Radiology Impressions Interventional Vascular Procedure 08/22/18 15:46 IMPRESSION: Ultrasound fluoroscopically placed temporary right IJ dialysis catheter Critical Care Progress Note - Nutrition Nutrition: Nutrition Category Date Time Status Heart Healthy Diet [DIET] Diets 08/22/18 Dinner Active Assessment/Plan - Assessment and Plan (Free Text) Plan: Patient seen and examined on rounds, with resident, agree with note with following additions/exceptions: Patient is 52yo female with past medical history of macroglobulinemia who prese nted to [facility] from her Medical Specialist Dr. Fernandez's office for plasmapheresis. Patient reports 2 week history of headaches without nausea, vomiting, neck stiffness, change in vision, weakness or sensory loss. No other constitutional symptoms. Patient underwent plasmapharesis yesterday, tolerated it well Follow up Heme Onc GI ppx DVT ppx Monitor in MICU
[2018-08-23] MEDS ORDERED: Potassium Chloride 20 mEq ER Tab PO ONE (08:09)
[2018-08-23 08:55] LABS: ALB/GLOB RATIO 1.9 (1.1-1.8); ALBUMIN 4.4 g/dL (3.0-4.8); ALT/SGPT 21 U/L (7-56); AST/SGOT 16 U/L (14-36); BLOOD UREA NITROGEN 9 mg/dL (7-21); CALCIUM 9.3 mg/dL (8.4-10.5); GFR NON-AFRICAN AMERICAN > 60
[2018-08-23] MEDS ORDERED: Sodium Chloride 0.9% 1,000 ML IV ONE (11:00)
[2018-08-23] MEDS ORDERED: RITUXIMAB IV ONE (11:00)
[2018-08-23] MEDS ORDERED: SODIUM CHLORIDE 0.9% IV ONE ×2 (11:00)
[2018-08-23] MEDS ORDERED: Ondansetron 16 MG, Dexamethasone 20 MG, DiphenhydrAMINE 25 MG, Famotidine 20 MG in Sodi... IVPB ONE (11:00)
[2018-08-23] MEDS ORDERED: BENDAMUSTINE IV ONE (11:00)
[2018-08-23] MEDS ORDERED: DiphenhydrAMINE 50 mg/ml Inj IVP STA (15:44)
[2018-08-23] MEDS ORDERED: MethylPREDNISolone 40 mg Vial IVP STA (15:44)
--- NOTE | 2018-08-23 18:32 | CON ---
DATE: 08/23/2018 The patient is admitted for Dr. Eduardo Godoy and Dr. Fernandez. REFERRING PHYSICIAN: Dr. Godoy. REASON FOR CONSULTATION: Evaluation of the patient unknown to me with a history of Waldenstrom's macroglobulinemia, admitted for plasmapheresis immunotherapy with a concern for tumor lysis syndrome and fluid management. HISTORY OF PRESENT ILLNESS: The patient is a 52-year-old white female with a history of Waldenstrom's macroglobulinemia, lymphoplasmacytic variant diagnosed in 2018. The patient is admitted for several rounds of plasmapheresis to be followed by rituximab and ibrutinib. The patient has normal renal parameters. At present, her uric acid level is 5.5. We are asked to monitor the patient in regard to her fluid status and to monitor her uric acid level for prevention of tumor lysis syndrome. PAST MEDICAL HISTORY: Significant for Waldenstrom's macroglobulinemia, anemia. MEDICATIONS AT HOME: Include that of multivitamins. ALLERGIES: NO KNOWN ALLERGIES TO MEDICATIONS. CURRENT MEDICATIONS IN HOSPITAL: Include that of Albumisol, Ativan, bendamustine, calcium gluconate, fosaprepitant, Zofran, dexamethasone, Benadryl, Pepcid, Protonix, rituximab, normal saline, and Tylenol p.r.n. SOCIAL HISTORY: No history of cigarette smoking. No history of alcohol use. FAMILY HISTORY: Negative and noncontributory. REVIEW OF SYSTEMS: Ten plus systems reviewed with the patient, all negative except for what is noted above. PHYSICAL EXAMINATION: GENERAL: The patient is currently seen in ICU bed 7. She appears comfortable. No acute distress. VITAL SIGNS: Blood pressure 107/39, temperature 98.5, pulse of 87 with a respiratory rate of 20 and a pulse ox of 97%. HEENT: Exam shows her to be normocephalic, atraumatic. Pupils equal and reactive to light and accommodation. Conjunctivae pale. Sclerae nonicteric. Posterior pharynx is normal. NECK: Supple. No lymphadenopathy. No neck vein distention or thyromegaly. No bruits. CHEST: Clear to auscultation and percussion. No rales, rhonchi or wheezing. CARDIOVASCULAR: Shows a regular rate rhythm without audible murmurs, rubs or gallops. ABDOMEN: Soft. Bowel sounds normal. No rebound, guarding or masses. BACK: No CVAT. No spinal tenderness. EXTREMITIES: Show no lower extremity cyanosis, clubbing or edema. Distal lower extremity pulses are 2+ bilaterally. NEURO: Shows her be alert, oriented x3 with no gross focal motor or sensory deficits. LABORATORY DATA AND IMAGING STUDIES: Admitting CBC, white blood cell count 5.6, today 4.9, hemoglobin 10.9 down to 10, platelet count is 302,000. Coags, PT of 14.5 with a PTT of 31. Chemistry showed normal electrolytes. BUN 9 with a creatinine of 0.5. Uric acid is 5.5. Calcium was 9.3 with a phosphorus of 3.5, magnesium 1.8. Iron saturations at 33%. Liver enzymes are normal. Albumin is 4.4. No urine available for comment. Microbiology, no cultures were sent. ASSESSMENT: 1. History of Waldenstrom's macroglobulinemia, lymphoplasmacytic variant. The patient is here for plasmapheresis and initiation of rituximab and ibrutinib. The patient, as per Dr. Fernandez and Dr. Godoy, needs to be managed for prevention of tumor lysis syndrome. We will continue to monitor uric acid levels on a daily basis. The patient will remain on IV fluid hydration. We will obtain a urinalysis. We will obtain a urine pH just in case uric acid levels rise and more intervention and management as necessary. 2. History of anemia. This is likely secondary to Waldenstrom's macroglobulinemia. Management as per Dr. Fernandez. PLAN: 1. Management of plasmapheresis and monoclonal therapy/chemotherapy as per Dr. Fernandez. 2. We will continue to monitor accurate I's and O's and labs on a daily basis. 3. At present, no acute renal related issues are present. Thank you for letting me partake and share in the care of your patient. Josef Spann MD
--- NOTE | 2018-08-23 22:10 | CON ---
DATE OF CONSULTATION: 08/23/2018 HISTORY OF PRESENT ILLNESS: The patient is a 52-year-old female admitted to the intensive care unit for plasmapheresis in anticipation of initiation of rituximab for Waldenstrom's macroglobulinemia. The patient was diagnosed with Waldenstrom's macroglobulinemia in 10/2017. At that time, she refused any further workup and just wanted to observe. The patient was subsequently referred to start chemotherapy for increased IgM levels with hyperviscosity by Dr. Fernandez.. 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 The patient also has a history of celiac disease and asthma in the past. PAST SURGICAL HISTORY: Status post x2. FAMILY HISTORY: Noncontributory. SOCIAL HISTORY: The patient denies any alcohol or drug use. MEDICATIONS: The patient is currently on no medications. ALLERGIES: THE PATIENT HAS NO KNOWN ALLERGIES. REVIEW OF SYSTEMS: The patient complains of intermittent episodes of joint discomfort involving the knees and hands. She denies any chest pain, shortness of breath, swelling of the legs. She complains of occasional headache. No nausea, no vomiting, no diaphoresis, no jaundice, no rash. PHYSICAL EXAMINATION: GENERAL: The patient is a well-developed female in no acute distress. VITAL SIGNS: Blood pressure 100/57, pulse 88, respiratory rate 20, temperature 98.1. HEENT: Head is normocephalic, atraumatic. Pupils equal, round, reactive to light. Extraocular movements intact. NECK: Supple. No thyromegaly. No carotid bruit. No adenopathy. LUNGS: Clear. HEART: Regular rate and rhythm. ABDOMEN: Soft, nontender. Bowel sounds are normoactive. EXTREMITIES: Without cyanosis, clubbing or edema. NEUROLOGIC: The patient is awake and oriented x3 without focal sensory or motor deficits. SKIN: Warm and dry. LABORATORY DATA: WBCs 4.9, hemoglobin 10.0, hematocrit 32.0, MCV 62.6, platelets 302,000. Sodium 142, potassium 3.7, chloride 109, CO2 of 25, BUN 9, creatinine 0.5. IMPRESSION: 1. Waldenstrom's macroglobulinemia. 2. 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 PLAN: The patient is scheduled for plasmapheresis followed by treatment with rituximab and bendamustine and then she will receive further treatment as an outpatient by Dr. Fernandez. ELIZABETH Foster MD MTDWalt
[2018-08-24 06:35] LABS: GRAN # 7.47 (1.4-6.5); GRAN % 91.2 % (50.0-68.0); HEMOGLOBIN 9.9 g/dL (12.0-16.0); LYMPH # 0.5 (1.2-3.4); LYMPH % 6.2 % (22.0-35.0); MEAN CELL VOLUME 62.2 fl (80.0-105.0); MEAN CORPUSCULAR HEMOGLOBIN 19.7 pg (25.0-35.0); MEAN CORPUSCULAR HGB CONC 31.6 g/dl (31.0-37.0); MEAN PLATELET VOLUME 10.2 fl (7.0-11.0); MONO # 0.2 (0.1-0.6); MONO % 2.6 % (1.0-6.0); PLATELET COUNT 302 10^3/uL (120.0-450.0); RBC 5.03 10^6/uL (3.5-6.1); RED CELL DISTRIBUTION WIDTH 15.5 % (11.5-14.5); WHITE BLOOD COUNT 8.2 10^3/uL (4.5-11.0)
[2018-08-24 06:39] LABS: INR 1.11; PARTIAL THROMBOPLASTIN TIME 28.4 Seconds (25.1-36.5); PROTHROMBIN TIME 12.8 SECONDS (9.4-12.5)
[2018-08-24 06:47] LABS: ALB/GLOB RATIO 1.6 (1.1-1.8); ALBUMIN 4.2 g/dL (3.0-4.8); ALT/SGPT 22 U/L (7-56); AST/SGOT 17 U/L (14-36); BLOOD UREA NITROGEN 9 mg/dL (7-21); CALCIUM 9.2 mg/dL (8.4-10.5); GFR NON-AFRICAN AMERICAN > 60; URIC ACID 4.4 mg/dL (2.5-6.2)
[2018-08-24 08:12] LABS: LYMPHOCYTE 5 % (22.0-35.0); MONOCYTE 2 % (1.0-6.0); NEUTROPHIL 93 % (50.0-70.0)
[2018-08-24 08:17] LABS: ANISOCYTOSIS 1+; HYPOCHROMIA 2+; MICROCYTOSIS 1+; PLATELET ESTIMATE NORMAL (NORMAL)
--- NOTE | 2018-08-24 08:24 | PN ---
DATE: 08/23/2018 PROBLEMS: This is a 32-year-old female with Waldenstrom's macroglobulinemia, lymphoplasmacytic variant, diagnosed recently, admitted to the hospital with hyperviscosity syndrome, received one course of plasmapheresis yesterday, following which the patient is now going to be assessed for systemic chemotherapy with Rituxan and bendamustine today. PHYSICAL EXAMINATION: GENERAL: The patient is currently in bed 7 of ICU. She appears comfortable, in no acute distress. Night was uneventful. VITAL SIGNS: Stable, blood pressure is 107/39, T-max is 98.4, pulse is 87, respirations are 20, pulse ox is 97%. HEENT: Head is normocephalic, atraumatic. Conjunctivae pale. Sclerae are anicteric. Pupils are equally reactive to light and accommodation. NECK: Supple. There is no adenopathy. No jugular venous distention noted. LUNGS: Clear to percussion and auscultation. CARDIOVASCULAR SYSTEM: Reveals S1 and S2 to be normal. No gallop or murmur is heard. ABDOMEN: Soft, nontender. Bowel sounds are present. No rebound, rigidity, or guarding is noted. EXTREMITIES: Reveal no cyanosis, clubbing, or edema. NEUROLOGIC: Reveals higher functions to be normal. No focal deficits are noted. Plantars are flexors. GENITOURINARY AND RECTAL: Deferred. LABORATORY DATA: Reveals white count of 5.6, hemoglobin 10.9, hematocrit is 33, platelet count 302,000. Coag revealed PT of 14.5, PTT of 31. Chemistry showed normal electrolytes. BUN of 9, creatinine 0.5, uric acid 5.5, calcium 9.3 with a phosphorus of 3.5, magnesium 1.8. Liver enzymes are normal. Albumin is 4.4. ASSESSMENT, NOTES, AND PLAN: The patient has Waldenstrom's macroglobulinemia, lymphoplasmacytic variant with viscosity that was elevated, status post one cycle of plasmapheresis with an exchange of 2780 mL of plasma removed with exchange of 5% albumin, 2.8 L. The patient tolerated the treatment well. Today, she is getting ready to get started with rituximab and bendamustine treatment. During the course of rituximab after a short course of infusion, the patient had allergic reaction in the form of redness in the throat, headaches, shortness of breath, back pain, for which the infusion was interrupted and infusion is still slow paced, was able to complete it, and the patient was then started on bendamustine infusion, which will continue over a period of 2 hours. We are going to monitor the patient's blood work over the course of the next 48-72 hours. We will continue to monitor accurate intakes and outputs and labs on a daily basis while she is getting the chemotherapy. The patient is scheduled for another course of plasmapheresis tomorrow and one more dose of bendamustine, which she is going to get tomorrow. At present, no acute renal-related issues are noted. They are going to watch her for tumor lysis syndrome. We have Renal onboard to keep an eye on the metabolic issues that could arise post-chemotherapy. Routine post-exam instructions have been given to the patient. Spent a lot of time discussing my findings and my treatment plans with many members of the family including the sisters, the mother, and her at great length. Time spent with the patient is greater than 80 minutes, for which more than half the time was spent with the patient [id number]. Please make a note, this is a complex patient with multiple comorbid medical issues and decision making process is complex. Kendall Fernandez MD
[2018-08-24] MEDS: POLYETHYLENE GLYCOL 3350 17 GM/Dose PACKET PO SCH (11:45)
[2018-08-24] MEDS ORDERED: BENDAMUSTINE IV ONE (14:00)
[2018-08-24] MEDS ORDERED: SODIUM CHLORIDE 0.9% IV ONE (14:00)
[2018-08-24] MEDS ORDERED: Ondansetron 16 MG, Dexamethasone 20 MG, DiphenhydrAMINE 25 MG, Famotidine 20 MG in Sodi... IVPB ONE (15:00)
--- NOTE | 2018-08-24 15:21 | PN ---
DATE: 08/24/2018 SUBJECTIVE: The patient is currently seen in ICU bed 7. She is entirely comfortable. She has had two plasmapheresis treatments for her Waldenstrom's macroglobulinemia. The patient has been started on rituximab and ibrutinib. Her laboratory work and fluid status appeared to be intact. MEDICATIONS: Medication list reviewed. The patient is on the Albumisol, Ativan, bendamustine, calcium gluconate, Colace, MiraLax, Zofran, dexamethasone, Benadryl and Pepcid, Protonix, and Tylenol p.r.n. OBJECTIVE: INTAKE/OUTPUT: 3820 in, 2100 out. VITAL SIGNS: Blood pressure 122/70, pulse of 95, temperature is 98.5 with a respiratory rate of 24 and a pulse ox of 97%. HEENT: Shows her be normocephalic, atraumatic. Conjunctivae are pale. Sclerae are nonicteric. NECK: Supple. No neck vein distention. CHEST: Clear to auscultation and percussion. No rales, rhonchi or wheezing. CARDIOVASCULAR: Shows a regular rate and rhythm without audible murmurs, rubs or gallops. ABDOMEN: Soft. Bowel sounds normal. No rebound, guarding or masses. EXTREMITIES: Show no lower extremity cyanosis, clubbing or edema. Distal lower extremity pulses are 2+ bilaterally. LABORATORY DATA AND IMAGING: CBC; white blood cell count today 8.2, hemoglobin 9.9 with a platelet count of 302,000. Coags; PT of 12.8 with an PTT of 28.4. Fibrinogen was 153. Chemistry showed normal electrolytes. Glucose 143 with a BUN of 9 and creatinine of 0.4. Uric acid remains stable at 4.4. Calcium is 9.2 with a phosphorus of 2.8. Magnesium level was 1.9. Bilirubin is normal. Liver enzymes are normal. Albumin is 4.2. Microbiology, no cultures were sent. ASSESSMENT: Waldenstrom's macroglobulinemia lymphoplasmacytic variant. The patient will likely have her third plasmapheresis treatment at the end of the weekend with initiation of rituximab and ibrutinib. The patient remains on IV fluid hydration. There is no evidence of present for tumor lysis syndrome. Her uric acid level is excellent at 4.4. Urine studies were requested, but not sent. PLAN: 1. We will continue to monitor the patient along with you, but at this point in time no aggressive intervention necessary from a nephrology standpoint. 2. Continue to monitor accurate I's and O's. Continue to follow daily labs. Josef Spann MD
--- NOTE | 2018-08-24 18:17 | CP.PCM.PN ---
Subjective - Date & Time of Evaluation Date of Evaluation: 08/24/18 Time of Evaluation: 10:40 - Subjective Subjective: OOB in chair, NAD Objective - Vital Signs/Intake and Output Vital Signs (last 24 hours): Temp Pulse Resp BP Pulse Ox 98.6 F 94 H 17 120/68 89 L 08/24/18 16:00 08/24/18 17:00 08/24/18 17:00 08/24/18 17:00 08/24/18 17:00 Intake and Output: 08/24/18 08/24/18 06:59 18:59 Intake Total 1800 100 Output Total 1000 Balance 800 100 - Medications Medications: Current Medications Acetaminophen (Tylenol 325mg Tab) 650 mg PO Q6H PRN PRN Reason: Headache Last Admin: 08/24/18 07:51 Dose: 650 mg Docusate Sodium (Colace) 100 mg PO BID COUNTS INCLUDE 234 BEDS AT THE [facility] Last Admin: 08/24/18 11:45 Dose: 100 mg Albumin Human (Albumin Human 5% (12.5 Gm/250 Ml)) 3,000 mls @ 2,000 mls/hr IV QOD@1700 COUNTS INCLUDE 234 BEDS AT THE [facility] Stop: 08/26/18 18:29 Last Admin: 08/24/18 17:14 Dose: Not Given Calcium Gluconate 1,000 mg/ (Sodium Chloride) 110 mls @ 146.667 mls/hr IVPB QOD COUNTS INCLUDE 234 BEDS AT THE [facility] Stop: 08/26/18 10:44 Last Admin: 08/24/18 11:39 Dose: Not Given Lorazepam (Ativan) 0.25 mg IV ONCE ONE Stop: 08/24/18 23:31 Pantoprazole Sodium (Protonix Inj) 20 mg IVP Q12 COUNTS INCLUDE 234 BEDS AT THE [facility] Last Admin: 08/24/18 09:20 Dose: 20 mg Polyethylene Glycol (Miralax) 17 gm PO DAILY COUNTS INCLUDE 234 BEDS AT THE [facility] Last Admin: 08/24/18 11:45 Dose: 17 gm - Labs Labs: 08/24/18 06:00 08/24/18 06:00 PT 12.8 SECONDS (9.4-12.5) H 08/24/18 06:00 INR 1.11 08/24/18 06:00 APTT 28.4 Seconds (25.1-36.5) 08/24/18 06:00 - Respiratory Exam Respiratory Exam: Clear to Ausculation Bilateral, NORMAL BREATHING PATTERN - Cardiovascular Exam Cardiovascular Exam: REGULAR RHYTHM - GI/Abdominal Exam GI & Abdominal Exam: Soft, Normal Bowel Sounds - Extremities Exam Extremities Exam: Normal Inspection - Neurological Exam Neurological Exam: Alert, Awake - Skin Skin Exam: Dry, Warm Assessment and Plan (1) Waldenstroms macroglobulinemia Status: Chronic (2) Thalassemia minor Status: Chronic - Assessment and Plan (Free Text) Plan: continue plasmapheresis/chemo per oncology
[2018-08-24 21:57] LABS: URINE APPEARANCE CLEAR (CLEAR); URINE BILIRUBIN NEGATIVE (NEGATIVE); URINE BLOOD NEGATIVE (NEGATIVE); URINE COLOR LIGHT YELLOW (YELLOW); URINE GLUCOSE (UA) 100 mg/dL (NEGATIVE); URINE LEUKOCYTE ESTERASE NEGATIVE Leu/uL (NEGATIVE); URINE PROTEIN NEGATIVE mg/dL (<30 mg/dL); URINE UROBILINOGEN 0.2 E.U./dL (<1 E.U./dL)
[2018-08-25 06:38] LABS: ALB/GLOB RATIO 2.3 (1.1-1.8); ALBUMIN 4.2 g/dL (3.0-4.8); ALT/SGPT 22 U/L (7-56); AST/SGOT 10 U/L (14-36); BLOOD UREA NITROGEN 13 mg/dL (7-21); CALCIUM 8.9 mg/dL (8.4-10.5); GFR NON-AFRICAN AMERICAN > 60; URIC ACID 4.1 mg/dL (2.5-6.2)
[2018-08-25 06:41] LABS: HEMOGLOBIN 9.7 g/dL (12.0-16.0); MEAN CELL VOLUME 61.9 fl (80.0-105.0); MEAN CORPUSCULAR HEMOGLOBIN 19.6 pg (25.0-35.0); MEAN CORPUSCULAR HGB CONC 31.7 g/dl (31.0-37.0); MEAN PLATELET VOLUME 10.3 fl (7.0-11.0); RBC 4.94 10^6/uL (3.5-6.1); RED CELL DISTRIBUTION WIDTH 15.4 % (11.5-14.5); WHITE BLOOD COUNT 10.3 10^3/uL (4.5-11.0)
[2018-08-25 07:30] LABS: INR 1.2; PARTIAL THROMBOPLASTIN TIME 30.9 Seconds (25.1-36.5); PROTHROMBIN TIME 13.8 SECONDS (9.4-12.5)
[2018-08-25] MEDS: POLYETHYLENE GLYCOL 3350 17 GM/Dose PACKET PO SCH (09:14)
--- NOTE | 2018-08-25 10:28 | CP.PCM.PN ---
Subjective - Date & Time of Evaluation Date of Evaluation: 08/25/18 Time of Evaluation: 10:00 - Subjective Subjective: c/o occasional palpitations, denies chest pain, no SOB Objective - Vital Signs/Intake and Output Vital Signs (last 24 hours): Temp Pulse Resp BP Pulse Ox 98.4 F 101 H 18 124/72 100 08/25/18 04:00 08/25/18 08:16 08/25/18 08:16 08/25/18 08:16 08/25/18 08:16 Intake and Output: 08/25/18 08/25/18 06:59 18:59 Intake Total 120 Output Total 900 Balance -780 - Medications Medications: Current Medications Acetaminophen (Tylenol 325mg Tab) 650 mg PO Q6H PRN PRN Reason: Headache Last Admin: 08/24/18 07:51 Dose: 650 mg Docusate Sodium (Colace) 100 mg PO BID [facility] Last Admin: 08/25/18 09:14 Dose: 100 mg Albumin Human (Albumin Human 5% (12.5 Gm/250 Ml)) 3,000 mls @ 2,000 mls/hr IV QOD@1700 [facility] Stop: 08/26/18 18:29 Last Admin: 08/24/18 17:14 Dose: Not Given Calcium Gluconate 1,000 mg/ (Sodium Chloride) 110 mls @ 146.667 mls/hr IVPB QOD [facility] Stop: 08/26/18 10:44 Last Admin: 08/24/18 11:39 Dose: Not Given Pantoprazole Sodium (Protonix Inj) 20 mg IVP Q12 [facility] Last Admin: 08/25/18 09:15 Dose: 20 mg Polyethylene Glycol (Miralax) 17 gm PO DAILY [facility] Last Admin: 08/25/18 09:14 Dose: 17 gm - Labs Labs: 08/25/18 05:30 08/25/18 05:30 PT 13.8 SECONDS (9.4-12.5) H 08/25/18 05:30 INR 1.20 08/25/18 05:30 APTT 30.9 Seconds (25.1-36.5) 08/25/18 05:30 - Respiratory Exam Respiratory Exam: Clear to Ausculation Bilateral, NORMAL BREATHING PATTERN - Cardiovascular Exam Cardiovascular Exam: Tachycardia - GI/Abdominal Exam GI & Abdominal Exam: Soft, Normal Bowel Sounds - Extremities Exam Extremities Exam: Normal Inspection - Neurological Exam Neurological Exam: Alert, Awake - Skin Skin Exam: Dry, Warm Assessment and Plan (1) Waldenstroms macroglobulinemia Status: Chronic (2) Thalassemia minor Status: Chronic (3) Tachycardia Status: Acute - Assessment and Plan (Free Text) Plan: monitor heart rate, continue plasmapheresis/chemo
--- NOTE | 2018-08-25 11:07 | PN ---
DATE: 08/25/2018 SUBJECTIVE: The patient is currently seen sitting up in bed. She is scheduled for a 3rd plasmapheresis treatment for Waldenstrom's macroglobulinemia on 08/26/2018. The patient has received rituximab and ibrutinib. Her fluid status appears to be stable. Her uric acid level is low. At present, there is no evidence for any biochemical metabolic abnormalities and no evidence for tumor lysis syndrome. MEDICATIONS: Medication list reviewed. The patient is currently on Albumisol, calcium, Colace, MiraLax, Protonix and Tylenol. OBJECTIVE: INTAKE AND OUTPUT: Intake is 1180, output is 1900. VITAL SIGNS: Blood pressure is 124/72, temperature is 98.4, pulse is 101 with a respiratory rate of 18. Oxygen saturation is 100%. HEENT: Normocephalic, atraumatic. Conjunctivae remain pale. Sclerae nonicteric. NECK: Supple. No neck vein distention. CHEST: Clear to auscultation and percussion. No rales, rhonchi or wheezing. The patient has a dialysis/plasmapheresis access, right chest wall. CARDIOVASCULAR: Regular rate and rhythm without audible murmurs, rubs or gallops. ABDOMEN: Soft. Bowel sounds normal. No rebound, guarding or masses. EXTREMITIES: Show no lower extremity cyanosis, clubbing or edema. Pulses are 2+ bilateral. LABORATORY DATA AND IMAGING: CBC: White blood cell count 10.3, hemoglobin 9.7 with a platelet count of 15.4. Coags: PT 30.8, INR 1.2 with a PTT of 30.9. Chemistry show a chloride of 111. Remainder of her electrolytes are normal. BUN 13 with a creatinine of 0.5. Glucose is 123 with a uric acid of 4.1. Calcium is 8.9. Yesterday's phosphorus was 2.8 with a magnesium of 1.9. Liver enzymes are normal. Albumin level is stable at 4.2. ASSESSMENT: Waldenstrom's macroglobulinemia, lymphoplasmacytic variant. The patient will receive her 3rd plasmapheresis likely tomorrow on 08/26/2018. At present, there is no evidence for tumor lysis syndrome but will continue to monitor the patient closely as she had received rituximab and ibrutinib. Uric acid level continues to drop, it is 4.1. PLAN: 1. We will continue to monitor along with you. 2. At this point in time, no aggressive renal intervention required. 3. Continue to monitor accurate Is and Os and daily labs. Josef Spann MD
--- NOTE | 2018-08-26 02:24 | PN ---
DATE: 08/25/2018 SUBJECTIVE: The patient is currently sitting up in bed, she is scheduled for third plasmapheresis tomorrow morning on 08/26/2018. The patient received rituximab and bendamustine, has tolerated the treatment well with very minimal side effects. Fluid status appears to be stable. At this time, uric acid level is low. There is no evidence of any biochemical metabolic changes at this time. MEDICATIONS: Reviewed, she is currently on albumin, , calcium, Colace, Miralax, Protonix, and Tylenol. PHYSICAL EXAMINATION GENERAL: Reveals the patient to be awake, alert, and oriented, in no significant distress. VITAL SIGNS: Stable. Blood pressure 124/72, T-max is 98.4, pulse is 101. Intake is 1180, output is 1900. HEENT: Head is normocephalic and atraumatic. Conjunctivae pale. Sclerae are anicteric. Pupils are equally reactive to light and accommodation. No oropharyngeal lesions are noted on oropharynx. NECK: Supple. There is no adenopathy. No jugular venous distension noted. LUNGS: Clear to percussion and auscultation. The patient has a dialysis catheter on her right chest wall. CARDIOVASCULAR SYSTEM: Reveals S1 and S2 to be normal. No gallop or murmur is heard. ABDOMEN: Soft and nontender. Bowel sounds are present. EXTREMITIES: Reveal no cyanosis, clubbing, or edema. LABORATORY DATA: Reveals a white count of 10.3, hemoglobin is 9.7, and platelet count of 154,000. PT is 30.8, INR 1.2 with PTT of 30.9. Chemistry show chloride of 101, remainder of electrolytes are normal. BUN is 13, creatinine 0.5, glucose is 123 with uric acid of 4.1, calcium is 8.9. Yesterday's phosphorus was 2.8 and magnesium 1.9. Liver enzymes are normal. Albumin is stable at 4.2. 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 PLAN: The patient is going to receive her third plasmapheresis of exchange tomorrow along with albumin and saline given to her then if the patient is stable, we will plan on discharging the patient. Routine post-exam instructions have been given to the patient. We will discuss with the patient and her family further treatment plans. We may have to give her growth factors 24 hours post chemotherapy to prevent white count from going down. Routine post-exam instructions have been given to the patient. Please make a note, this is a complex patient with multiple comorbid medical issues. Kendall Fernandez MD
[2018-08-26 06:46] LABS: HEMOGLOBIN 9.6 g/dL (12.0-16.0); MEAN CELL VOLUME 62.2 fl (80.0-105.0); MEAN CORPUSCULAR HEMOGLOBIN 19.8 pg (25.0-35.0); MEAN CORPUSCULAR HGB CONC 31.9 g/dl (31.0-37.0); MEAN PLATELET VOLUME 9.8 fl (7.0-11.0); RBC 4.84 10^6/uL (3.5-6.1); RED CELL DISTRIBUTION WIDTH 15.5 % (11.5-14.5); WHITE BLOOD COUNT 4.2 10^3/uL (4.5-11.0)
[2018-08-26 07:38] LABS: ALB/GLOB RATIO 1.9 (1.1-1.8); ALBUMIN 3.8 g/dL (3.0-4.8); ALT/SGPT 18 U/L (7-56); AST/SGOT 12 U/L (14-36); BLOOD UREA NITROGEN 12 mg/dL (7-21); CALCIUM 8.8 mg/dL (8.4-10.5); GFR NON-AFRICAN AMERICAN > 60; URIC ACID 5.3 mg/dL (2.5-6.2)
[2018-08-26] MEDS ORDERED: Potassium Chloride 20 mEq ER Tab PO STA ×2 (08:50→17:10)
[2018-08-26 10:11] LABS: INR 1.07; PARTIAL THROMBOPLASTIN TIME 26.8 Seconds (25.1-36.5); PROTHROMBIN TIME 12.3 SECONDS (9.4-12.5)
[2018-08-26] MEDS: POLYETHYLENE GLYCOL 3350 17 GM/Dose PACKET PO SCH (10:22)
--- NOTE | 2018-08-26 10:50 | PN ---
DATE: 08/26/2018 SUBJECTIVE: The patient is currently seen sitting up in a chair. She is anticipating having her third plasmapheresis for her Waldenstrom's macroglobulinemia today. She had received rituximab and ibrutinib. The patient's fluid status appears to be stable. Uric acid levels are controlled. Uric acid today is 5.3. She is mildly hypokalemic and had received oral potassium supplements. Her magnesium level is normal. MEDICATIONS: Medication list reviewed. The patient is currently on Albumisol, calcium, Colace, K-Tabs, MiraLax, Protonix, Tylenol p.r.n. and Zofran p.r.n. OBJECTIVE: INTAKE AND OUTPUT: Intake is 120 charted, 400 out. VITAL SIGNS: Blood pressure 122/64, pulse of 83, temperature of 98.4 with a respiratory rate of 18. HEENT: Shows her to be normocephalic, atraumatic. Conjunctivae remain pale. Sclerae nonicteric. NECK: Supple. No neck vein distention. CHEST: Clear to auscultation and percussion. No rales, rhonchi or wheezing. The patient has a dialysis/plasmapheresis catheter, right chest wall. CARDIOVASCULAR: Regular rate and rhythm without audible murmurs, rubs or gallops. ABDOMEN: Soft. Bowel sounds normal. No rebound, guarding or masses. EXTREMITIES: Show no lower extremity cyanosis, clubbing or edema. Pulses are 2+ bilaterally. LABORATORY DATA AND IMAGING: CBC today, white blood cell count 4.2, hemoglobin is 9.6 with a platelet count of 253,000. Coags, fibrinogen is 97. PT is 13.8 with a PTT of 30.9. Chemistry show normal electrolytes with exception of a potassium of 3.2. BUN 12 with a creatinine of 0.5. Uric acid slightly higher at 5.3. Liver enzymes are normal or low. Albumin is 3.8. Urine showed a pH of 6, otherwise unremarkable. ASSESSMENT: 1. Waldenstrom's macroglobulinemia, lymphoplasmacytic variant with hyperviscosity. The patient is scheduled for her third plasmapheresis today. She is status post receiving rituximab and ibrutinib. At present, there is no evidence for tumor lysis syndrome. The patient's uric acid level is acceptable. 2. Mild hypokalemia. The patient will receive oral potassium supplements. If this does not correct her potassium deficiency, the patient may receive potassium chloride intravenous riders. PLAN: 1. Continue to monitor labs on a daily basis. 2. Supplement potassium as noted above. 3. Try and obtain accurate Is and Os. Josef Spann MD
[2018-08-26] MEDS ORDERED: Potassium Chloride 20 mEq ER Tab PO ONE (11:00)
--- NOTE | 2018-08-26 11:52 | CP.PCM.PN ---
Subjective - Date & Time of Evaluation Date of Evaluation: 08/26/18 Time of Evaluation: 10:45 - Subjective Subjective: resting comfortably, receiving plasmapheresis in ICU Objective - Vital Signs/Intake and Output Vital Signs (last 24 hours): Temp Pulse Resp BP Pulse Ox 98.6 F 79 15 125/75 98 08/26/18 08:00 08/26/18 11:00 08/26/18 11:00 08/26/18 11:00 08/26/18 11:00 Intake and Output: 08/26/18 08/26/18 06:59 18:59 Intake Total 120 Output Total 400 Balance -280 - Medications Medications: Current Medications Acetaminophen (Tylenol 325mg Tab) 650 mg PO Q6H PRN PRN Reason: Headache Last Admin: 08/26/18 08:25 Dose: 650 mg Docusate Sodium (Colace) 100 mg PO BID [facility] Last Admin: 08/26/18 10:22 Dose: Not Given Albumin Human (Albumin Human 5% (12.5 Gm/250 Ml)) 3,000 mls @ 2,000 mls/hr IV QOD@1700 [facility] Stop: 08/26/18 18:29 Last Admin: 08/24/18 17:14 Dose: Not Given Ondansetron HCl (Zofran Inj) 8 mg IVP Q8H PRN PRN Reason: Nausea/Vomiting Last Admin: 08/26/18 09:10 Dose: 8 mg Pantoprazole Sodium (Protonix Inj) 20 mg IVP Q12 [facility] Last Admin: 08/26/18 10:23 Dose: 20 mg Polyethylene Glycol (Miralax) 17 gm PO DAILY [facility] Last Admin: 08/26/18 10:22 Dose: Not Given - Labs Labs: 08/26/18 06:30 08/26/18 06:30 PT 12.3 SECONDS (9.4-12.5) 08/26/18 09:45 INR 1.07 08/26/18 09:45 APTT 26.8 Seconds (25.1-36.5) 08/26/18 09:45 - Respiratory Exam Respiratory Exam: Clear to Ausculation Bilateral, NORMAL BREATHING PATTERN - Cardiovascular Exam Cardiovascular Exam: REGULAR RHYTHM - GI/Abdominal Exam GI & Abdominal Exam: Soft, Normal Bowel Sounds - Extremities Exam Extremities Exam: Normal Inspection - Neurological Exam Neurological Exam: Alert, Awake - Skin Skin Exam: Dry, Warm Assessment and Plan (1) Waldenstroms macroglobulinemia Status: Chronic (2) Thalassemia minor Status: Chronic (3) Tachycardia Status: Acute - Assessment and Plan (Free Text) Plan: continue present tx/heme-onc follow-up Dr. Fernandez, potassium replacement ordered
[2018-08-26] MEDS ORDERED: DiphenhydrAMINE 50 mg/ml Inj IVP ONE (14:00)
[2018-08-26] MEDS ORDERED: Potassium Chloride 20 mEq/15 ml LIQ UD PO STA (17:06)
[2018-08-26 18:03] VITALS: BP 122/65; PULSE 88; RESP 18; TEMP 98.5; O2SAT 95
--- NOTE | 2018-08-27 03:53 | DS ---
LOCATION: The patient is in ICU, 128, bed 7. TIME: 6:30 p.m. REASON FOR ADMISSION: This is a 52-year-old female with known diagnosis of Waldenstrom's macroglobulinemia, who was recently diagnosed with increased serum viscosity and IgM level of greater than 5 g. She was admitted electively to the hospital because of concerns of increasing serum viscosity related complications and sequelae with treatment where the viscosity could rise even further as a response to the chemotherapy. The plan was to give the patient intravenous Rituxan and bendamustine and then switch to Rituxan and ibrutinib as an outpatient. Because of the concern of hyperviscosity and its associated complications, the patient was admitted electively to the ICU for placement of a central line for plasmapheresis and at least do 2 or 3 exchanges following which we would continue her chemotherapy. HOSPITAL COURSE: The patient had the line put in and the patient had the first exchange done on day 1 and the patient bled after the plasma exchange where more than 2580 mL of plasma was removed and the patient received albumin and saline as volume support. She then was treated with rituximab total dose of mg given slowly over 5 hours. The patient had to get lot of and the infusion rate has to be slowed down because of infusion reaction in the first time around, but she was able to complete the Rituxan on time. She subsequently received the bendamustine which she tolerated reasonably well and the dose of bendamustine was 159 mg given in total period of about 90 minutes. The patient had the plasmapheresis on day 1, 3 and 5 of her hospital stay and the chemotherapy was given on day 1 and 2. Since the chemotherapy was given post-pheresis, our hope was that the chemotherapy would be more effective, and more importantly, IgM is mostly intravascular and with the pheresis each time, we would probably plan to take her about 60% of the IgM out with plasmapheresis. The concern during the pheresis was coagulation status and PT and PTT were monitored vigilantly throughout her stay. The other concern was fibrinogen which was also monitored. The fibrinogen did go down to 97 and 102 on day 5 for which the patient received cryoprecipitate 1 unit post completion of the plasmapheresis. CBC including white count, hemoglobin and platelet count have remained stable throughout the whole process. The patient was watched also and monitored for tumor lysis syndrome in conjunction with help from the renal service by Dr. Spann and his group to make sure she do not have tumor lysis syndrome and associated complications. In all, the patient tolerated to the treatment well after completion of the treatment and after getting the cryoprecipitate, we waited an hour and then the central line was removed and the patient was discharged. Prescriptions for Zofran ODT tablet and prescription for Fioricet tabs for headaches have been given to the patient. The patient was constipated, but before she left the hospital, she had a bowel movement, which she felt better. I told the patient's family and the patient that she should stay on a neutropenic diet for the next week or so. She will be returning to see us in the office and plan to give Neulasta in a.m. and we are going to continuously monitor her over the next several days. CONDITION ON DISCHARGE: Fair. OVERALL PROGNOSIS: Good. DISCHARGE DIAGNOSES: Waldenstrom's macroglobulinemia, lymphoplasmacytic variant with hyperviscosity syndrome status post plasmapheresis x3 with exchange of 3 liters with each plasmapheresis with substitution of albumin and saline. The patient received 1 unit of cryoprecipitate and completed the first cycle of chemotherapy with Rituxan and bendamustine. Time spent in discharge summary more than 90 minutes. Please make a note, this is a complex patient with multiple comorbid medical issues. Time spent was also in counseling the patient and the family who are very much concerned about what the future health for the patient. Kendall Fernandez MD
--- NOTE | 2018-08-27 04:00 | PN ---
DATE: 08/26/2018 ONCOLOGY PROGRESS NOTE LOCATION: The patient is in ICU 128, bed 7. SUBJECTIVE: The patient is sitting up in the chair. She had been kept for her third plasmapheresis today and had a talk with the plasmapheresis nurse staff from [facility]. We are planning to do an exchange, one plasma exchange and take out 3 L of plasma, and our concern today this morning is that her PT, PTT is normal, but her fibrinogen first value in the morning was 97, repeat value is 107, we are going to watch that. The patient may have to get cryoprecipitate after completion of the pheresis. Here, the patient has been having some headaches, for which she had some Tylenol. She was nauseous, for which she got some IV Zofran. The patient is feeling better, still constipated. The patient's fluid status appears to be stable. Uric acid levels are controlled. The patient's potassium is low, but she received two doses of potassium so far 20 mEq two hours apart. MEDICATIONS: Reviewed. She is on calcium, Colace, K-Tab, MiraLax, Protonix, Tylenol, and Zofran. Objectively, the patient's intake is 120, output is 400. PHYSICAL EXAMINATION: VITAL SIGNS: Stable. Blood pressure is 122/64, pulse is 83, T-max is 98.4 with respirations of 18. HEENT: Head is normocephalic and atraumatic. Conjunctivae pale. Sclerae are anicteric. Pupils are equally reactive to light and accommodation. Examination of the oropharynx reveals no oropharyngeal lesions. NECK: Supple. There is no adenopathy. No jugular venous distention noted. LUNGS: Clear to percussion and auscultation. CARDIOVASCULAR SYSTEM: Reveals S1 and S2 to be normal. No gallop or murmur is heard. ABDOMEN: Soft, nontender. No rebound, rigidity, or guarding is noted. EXTREMITIES: Reveals no cyanosis, clubbing, or edema. NEUROLOGIC: Reveals higher functions to be normal. No focal deficits are noted. LABORATORY DATA: Lab data was reviewed. White count is 4.2, hemoglobin 9.6, platelet count 253,000. Coags, fibrinogen is as mentioned 92, repeat one is 102. PT is 13.8, PTT is 30.9. Chemistry shows normal electrolytes with an exception of potassium of 3.2, BUN is 12 with a creatinine of 0.5. Uric acid is slightly high at 5.3. Liver enzymes are normal. Albumin is 3.8. Urine pH shows a pH of 8, otherwise unremarkable. ASSESSMENT, NOTES, AND PLAN: The patient has Waldenstrom macroglobulinemia, lymphoplasmacytic variant with hyperviscosity. The patient is scheduled for the third plasmapheresis exchange this morning. Our plan is to exchange and give albumin and saline in return. The patient is going to have three liters of plasma taken out, and hopefully, with this, the IgM level should have come dramatically down. The patient is status post receiving chemotherapy with Rituxan and bendamustine. We will have to watch out for the blood counts to drop. The patient may need to get growth factors after she gets discharge, hopefully after today's infusion is completed. For the mild hypokalemia, the patient is going to get a total of 60 mEq, 20 mEq given two to three hours apart. We are going to repeat the K levels before she leaves home. The patient is also going to get a bag of one unit of cryoprecipitate, which is equivalent to four to five bags of poor plasma which is going to be given at the end of the pheresis. I have given all these instructions to the pheresis nurse and to the nurse in charge of that. Time taken the patient, correlating all the information, talking to the family, talking to the patient, took me more than 80 minutes. Please make a note, this is a complex patient with multiple comorbid medical issues. If the patient continues to do well, maybe later on this evening, we might discharge her. Kendall Fernandez MD
--- NOTE | 2018-08-27 09:56 | PN ---
DATE: 08/24/2018 LOCATION: The patient is in bed 7, room 128 in ICU. SUBJECTIVE: The patient is in bed, feeling comfortable. She is just completing her second day of plasmapheresis which went uneventfully. The patient had one plasma exchange with removal of at least 3000 mL of plasma with 5% albumin daily without much overt complications such as hypertension, fevers, chills, heart failure, or numbness. The patient's lab and fluid status appears to be stable without any significant evidence of tumor lysis. MEDICATIONS: Reviewed. The patient is on Albumisol, Ativan, bendamustine, calcium gluconate, Flonase, MiraLax, Zofran, dexamethasone, Benadryl, Pepcid, Protonix, and Tylenol p.r.n. PHYSICAL EXAMINATION: VITAL SIGNS: Stable. Blood pressure is 120/70, pulse is 95, T-max is 98.4 with respiratory rate of 24, and pulse ox is 97%. HEENT: Head is normocephalic and atraumatic. Conjunctivae pale. Sclerae nonicteric. Pupils are equal and reactive to light and accommodation. Examination of the oropharynx revealed no oropharyngeal lesions. NECK: Supple. There is no adenopathy. No jugular venous distention noted. LUNGS: Clear to percussion and auscultation. No adventitious sounds are heard. CARDIOVASCULAR SYSTEM: Revealed S1 and S2 to be normal. No gallop or murmur is heard. ABDOMEN: Soft and nontender. No rebound, rigidity, or guarding is noted. EXTREMITIES: No cyanosis, clubbing, or edema. Distal pulses are well assessed and 2+ bilaterally. LABORATORY DATA: Reveals white count of 8.2, hemoglobin 9.9, and platelet count of 302,000. PT of 12.8 with a PTT of 28.4 and fibrinogen of 153. Chemistry shows normal electrolytes. Glucose is 143 with the BUN of 9, creatinine 0.4. Uric acid remains stable at 4.4, calcium is 9.2 with the phosphorus of 2.8, magnesium is 1.9, bilirubin is normal. Liver enzymes are normal. Albumin is 4.2. Microbiology reveals no cultures to be positive. ASSESSMENT NOTES AND PLAN: The patient has Waldenstrom's macroglobulinemia, lymphoplasmacytic lymphoma variant, hyperviscosity syndrome, currently on plasmapheresis, Rituxan, and bendamustine. The patient will be getting her second dose of bendamustine today. I will continue to monitor the patient and will be getting one more plasmapheresis on Monday, two days from today; and hopefully, after that, if the patient's condition is stable, we will be able to discharge her and follow her as an outpatient. The patient will be kept in once she is discharged. Please make a note, this is a complex patient with multiple comorbid medical issues. We will need to monitor her in the intensive care unit, just to watch her for tumor lysis syndrome, and given the fact that the patient also will be getting plasmapheresis that can cause her hemodynamic . Kendall Fernandez MD
== END 2018-08-26 18:59 | disposition home or self-care (01) | DRG 842 ==
LOC: ED 12:25 → ERH 12:50 → ICU 14:20
PROVIDERS: ADMIT Family Medicine; ATTEND Family Medicine
PROC: 6A551Z3 Pheresis of Plasma, Multiple (ICD-10-PCS; principal; 2018-08-22)
PROC: 06H033Z Insertion of Infusion Device into Inferior Vena Cava, Percutaneous Approach (ICD-10-PCS; 2018-08-22)
PROC: B543ZZA Ultrasonography of Right Jugular Veins, Guidance (ICD-10-PCS; 2018-08-22)
PROC: 3E03305 Introduction of Other Antineoplastic into Peripheral Vein, Percutaneous Approach (ICD-10-PCS; 2018-08-23)
DX: C88.0 Waldenstrom macroglobulinemia (principal); D56.3 Thalassemia minor; E87.6 Hypokalemia; J45.909 Unspecified asthma, uncomplicated; K90.0 Celiac disease; K76.0 Fatty (change of) liver, not elsewhere classified; K59.00 Constipation, unspecified; R00.0 Tachycardia, unspecified

== ENCOUNTER 2018-08-27 12:27 | Outpatient (CLI) | payer BC | END 2018-08-27 12:28 | disposition home or self-care (01) | LOC: OPLAB 12:27 ==

== ENCOUNTER 2018-09-17 14:11 | Outpatient (CLI) | payer BC | END 2018-09-17 14:12 | disposition home or self-care (01) | LOC: OPLAB 14:11 ==

== ENCOUNTER 2018-09-24 13:08 | Outpatient (CLI) | payer BC | END 2018-09-24 13:09 | disposition home or self-care (01) | LOC: OPLAB 13:08 ==

== ENCOUNTER 2018-09-25 12:58 | Outpatient (CLI) | payer BC | END 2018-09-25 12:59 | disposition home or self-care (01) | LOC: OPLAB 12:58 ==

== ENCOUNTER 2018-09-26 17:40 | Outpatient (CLI) | payer BC | END 2018-09-26 17:41 | disposition home or self-care (01) | LOC: OPLAB 17:40 ==

== ENCOUNTER 2018-09-27 12:55 | Outpatient (CLI) | payer BC | END 2018-09-27 12:56 | disposition home or self-care (01) | LOC: OPLAB 12:55 ==

== ENCOUNTER 2018-10-20 13:36 | Emergency (ER) | payer BC ==
[2018-10-20 13:37] VITALS: BMI 29.2
[2018-10-20 14:04] VITALS: TEMP 98.6
[2018-10-20] MEDS ORDERED: Sodium Chloride 0.9% 1,000 ML IV STA (14:09)
--- NOTE | 2018-10-20 14:34 | ED PDOC ---
Arrival/HPI - General Historian: Patient - History of Present Illness Narrative History of Present Illness (Text): 10/20/18 14:31 53yo female with pmhx of Waldenstroms macroglobulinemia, Thalassemia minor, Lymphoma referred to ED by Dr. Fernandez for left flank pain with associated N/V 2hrous [employer]. The son by the bedside interpreted, denies previous history of the pain. Denies hematuria, fever, chills, diarrhea, melena, hematemsis, constipation, sick contact, travel, any other complaint <DanielleHappiness A - Last Filed: 10/20/18 19:41> <Petra More - Last Filed: 10/21/18 12:39> - General Chief Complaint: Female Genitourinary Time Seen by Provider: 10/20/18 13:53 Past Medical History - Provider Review Nursing Documentation Reviewed: Yes - Infectious Disease Hx of Infectious Diseases: None - Reproductive Menopause: Yes - Cardiac Hx Cardiac Disorders: No Hx Pacemaker: No - Pulmonary Hx Respiratory Disorders: No - Neurological Hx Neurological Disorder: No - HEENT Hx HEENT Disorder: No - Renal Hx Renal Disorder: No - Endocrine/Metabolic Hx Endocrine Disorders: No - Hematological/Oncological Hx Blood Disorders: Yes (macroglobalinemia) Hx Anemia: Yes Hx Lymphoma: Yes Other/Comment: dx about 6 months ago routine bloodwork ordered by dr mckeon protein was elevated - Integumentary Hx Dermatological Disorder: No - Musculoskeletal/Rheumatological Hx Falls: No - Gastrointestinal Hx Gastrointestinal Disorders: No - Genitourinary/Gynecological Hx Genitourinary Disorders: No Other/Comment: left breast mass 12/2014 us bx done neg - Psychiatric Hx Psychophysiologic Disorder: No Hx Emotional Abuse: No Hx Physical Abuse: No Hx Substance Use: No - Surgical History Other/Comment: c section x 2, bone marrow bx 06/2018, rcw pac implanted today 08/22/18, ultrasound guided bx left breast mass 12/2014 - Anesthesia Hx Anesthesia Reactions: No Hx Malignant Hyperthermia: No - Suicidal Assessment Feels Threatened In Home Enviroment: No <Diru,Happiness A - Last Filed: 10/20/18 19:41> Family/Social History - Physician Review Nursing Documentation Reviewed: Yes () Family/Social History: Unknown Family HX Smoking Status: Never Smoked Hx Alcohol Use: No Hx Substance Use: No <Diru,Happiness A - Last Filed: 10/20/18 19:41> Allergies/Home Meds <Andres Santos - Last Filed: 10/20/18 19:41> <Petra More - Last Filed: 10/21/18 12:39> Allergies/Adverse Reactions: Allergies No Known Allergies Allergy (Verified 06/27/18 13:45) Home Medications: Home Meds Medication Instructions Recorded Confirmed Multivitamin [Daily Analy] 1 tab PO DAILY 06/27/18 08/22/18 Review of Systems - Physician Review All systems were reviewed & negative as marked: Yes - Review of Systems Constitutional: Normal Eyes: Normal ENT: Normal Respiratory: Normal Cardiovascular: Normal Gastrointestinal: Abdominal Pain (Left flank), Nausea, Vomiting. absent: Constipation, Diarrhea, Hematemesis Genitourinary Female: Normal Musculoskeletal: Normal Skin: Normal Neurological: Normal Endocrine: Normal Hemo/Lymphatic: Normal Psychiatric: Normal <Andres Santos A - Last Filed: 10/20/18 19:41> Physical Exam Vital Signs Reviewed: Yes Vital Signs Temp Pulse Resp BP Pulse Ox 10/20/18 13:58 98.6 F 104 H 20 128/80 98 Temperature: Afebrile Blood Pressure: Normal Pulse: Regular Respiratory Rate: Normal Appearance: Positive for: Well-Appearing, Non-Toxic, Comfortable Pain Distress: None Mental Status: Positive for: Alert and Oriented X 3 - Systems Exam Head: Present: Atraumatic, Normocephalic Pupils: Present: PERRL Extroacular Muscles: Present: EOMI Conjunctiva: Present: Normal Mouth: Present: Moist Mucous Membranes Neck: Present: Normal Range of Motion Respiratory/Chest: Present: Clear to Auscultation, Good Air Exchange. No: Respiratory Distress, Accessory Muscle Use Cardiovascular: Present: Regular Rate and Rhythm, Normal S1, S2. No: Murmurs Abdomen: Present: Tenderness (Left flank tenderness), Normal Bowel Sounds, Other (Soft). No: Distention, Peritoneal Signs, Rebound, Guarding, McBurney's Point Tender, Rovsing's Sign Present Back: Present: Normal Inspection Upper Extremity: Present: Normal Inspection. No: Cyanosis, Edema Lower Extremity: Present: Normal Inspection. No: Edema Neurological: Present: GCS=15, CN II-XII Intact, Speech Normal Skin: Present: Warm, Dry, Normal Color. No: Rashes Psychiatric: Present: Alert, Oriented x 3, Normal Insight, Normal Concentration <Diru,Happiness A - Last Filed: 10/20/18 19:41> Vital Signs Temp Pulse Resp BP Pulse Ox 10/20/18 16:30 92 H 16 112/61 100 10/20/18 13:58 98.6 F 104 H 20 128/80 98 <ArgenisPetra - Last Filed: 10/21/18 12:39> Medical Decision Making ED Course and Treatment: 10/20/18 19:18 PT presented to ED for stated history. She was in moderate distress on arrival secondary to pain and was noted retching in ED. Labs IVF Zofran, Toradol abd/Pelvic CT to r/o renal stone Lab was reviewed and unremarkable. Blood was noted in her UA Her pain resolved in ED on re evaluation and she was smiling and talking with her family in ED. EXAM: CT Abdomen and Pelvis without IV contrast Electronically signed on Oct 20, 2018 6:32:27 PM EST by: Jason Kenyon M.D IMPRESSION: Small cysts within the liver present. 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 No definite calculus or obstruction. Small left adrenal adenoma of approximately 1.6 cm. Small amount of free fluid within the cul-de-sac of the pelvis. Pt was also seen in ED by Dr. More Case was DW Dr. Fernandez who states pt always have blood in her urine and has been seen by a Urologist. Agrees with the plan to DC pt home. Pt requested to be DC home states she feels fine and will come back if her symptom returns. She was DC home with Zofran rx and was advised to f/u with Dr. Fernandez. - RAD Interpretation Radiology Orders: 10/20/18 14:08 ABD & PELVIS W/O PO OR IV CONT [CT] Stat - Medication Orders Current Medication Orders: Sodium Chloride (Sodium Chloride 0.9%) 1,000 mls @ 999 mls/hr IV .Q1H1M STA Stop: 10/20/18 15:09 Discontinued Medications Ketorolac Tromethamine (Toradol) 30 mg IVP STAT STA Stop: 10/20/18 14:09 Ondansetron HCl (Zofran Inj) 4 mg IVP STAT STA Stop: 10/20/18 14:09 <Andres Santos - Last Filed: 10/20/18 19:41> ED Course and Treatment: 10/21/18 12:36 Patient examined by me with family present. She reported sudden onset of left flank pain radiating to abdomen, now completely resolved. She reported some difficulty urinating at the time, now pain resolved and she is urinating without difficulty. No chest pain or upper back pain. No shortness of breath. No fevers or chills. CT reviewed with patient and family and limitations of studies reviewed. As she is pain free, cardiovascularly stable, with positive blood in UA, renal colic within differential diagnosis although other disease processes cannot be excluded. She is comfortable and wishes to go home, have advised close follow-up. - Lab Interpretations Lab Results: Troponin I < 0.01 ng/mL 10/20/18 14:58 Total Bilirubin 0.3 mg/dL (0.2-1.3) 10/20/18 14:58 AST 27 U/L (14-36) 10/20/18 14:58 ALT 16 U/L (7-56) 10/20/18 14:58 Alkaline Phosphatase 95 U/L (38-126) 10/20/18 14:58 Total Protein 8.3 g/dL (5.8-8.3) 10/20/18 14:58 Albumin 4.4 g/dL (3.0-4.8) 10/20/18 14:58 Globulin 3.9 gm/dL 10/20/18 14:58 Albumin/Globulin Ratio 1.1 (1.1-1.8) 10/20/18 14:58 Amylase 133 U/L (35-125) H 10/20/18 14:58 Lipase 82 U/L (23-300) 10/20/18 14:58 Urine Color Yellow (YELLOW) 10/20/18 14:58 Urine Appearance Clear (CLEAR) 10/20/18 14:58 Urine pH 6.0 (4.7-8.0) 10/20/18 14:58 Ur Specific [place] >= 1.030 (1.005-1.035) 10/20/18 14:58 Urine Protein 100 mg/dL (<30 mg/dL) H 10/20/18 14:58 Urine Glucose (UA) Negative mg/dL (NEGATIVE) 10/20/18 14:58 Urine Ketones Negative mg/dL (NEGATIVE) 10/20/18 14:58 Urine Blood Large (NEGATIVE) H 10/20/18 14:58 Urine Nitrate Negative (NEGATIVE) 10/20/18 14:58 Urine Bilirubin Negative (NEGATIVE) 10/20/18 14:58 Urine Urobilinogen 0.2 E.U./dL (<1 E.U./dL) 10/20/18 14:58 Ur Leukocyte Esterase Trace [place]/uL (NEGATIVE) H 10/20/18 14:58 Urine RBC Tntc /hpf (0-2) H 10/20/18 14:58 Urine WBC 0 - 2 /hpf (0-6) 10/20/18 14:58 Ur Epithelial Cells None /hpf (0-5) 10/20/18 14:58 - RAD Interpretation Radiology Orders: 10/20/18 14:08 ABD & PELVIS W/O PO OR IV CONT [CT] Stat - Medication Orders Current Medication Orders: Discontinued Medications Sodium Chloride (Sodium Chloride 0.9%) 1,000 mls @ 999 mls/hr IV .Q1H1M STA Stop: 10/20/18 15:09 Last Admin: 10/20/18 14:30 Dose: 999 mls/hr eMAR Start Stop Document 10/20/18 14:30 NICOL[facility] (Rec: 10/20/18 14:44 [facility] [place] [id number]) Intravenous Solution Start Date 10/20/18 Start Time 14:30 End Date 10/20/18 End time 15:30 Total Infusion Time 60 Ketorolac Tromethamine (Toradol) 30 mg IVP STAT STA Stop: 10/20/18 14:09 Last Admin: 10/20/18 14:42 Dose: 30 mg MAR Pain Assessment Document 10/20/18 14:42 NICOL[facility]S (Rec: 10/20/18 14:43 [facility] [place] [id number]) Pain Reassessment Is this a pain reassessment? Yes Presence of Pain Presence of Pain Yes Pain Scale Used Protocol: PSCALES Pain Scale Used Numeric Location Left, Right or Bilateral Left Upper or Lower Lower Pain Location Body Site Back Description Description Sharp Intensity of Pain at present 10 IVP Administration Document 10/20/18 14:42 NICOL[facility]S (Rec: 10/20/18 14:43 [facility] [place] [id number]) Charges for Administration # of IVP Administrations 1 Ondansetron HCl (Zofran Inj) 4 mg IVP STAT STA Stop: 10/20/18 14:09 Last Admin: 10/20/18 14:42 Dose: 4 mg IVP Administration Document 10/20/18 14:42 NICOL[facility]S (Rec: 10/20/18 14:42 [facility] [place] [id number]) Charges for Administration # of IVP Administrations 1 <Petra More - Last Filed: 10/21/18 12:39> Disposition/Present on Arrival - Present on Arrival Any Indicators Present on Arrival: No History of DVT/PE: No History of Uncontrolled Diabetes: No Urinary Catheter: No History of Decub. Ulcer: No History Surgical Site Infection Following: None - Disposition Have Diagnosis and Disposition been Completed?: Yes Disposition Time: 19:00 Patient Plan: Discharge <Andres Santos - Last Filed: 10/20/18 19:41> <Petra More - Last Filed: 10/21/18 12:39> - Disposition Diagnosis: Flank pain, Hematuria Disposition: HOME/ ROUTINE Condition: STABLE Discharge Instructions (ExitCare): Blood in the Urine (Hematuria) in Adults, Flank Pain Additional Instructions: Follow up with your doctor Drink plenty of fluid return to ED for any new or worsening symptoms Prescriptions: Ondansetron ODT [Zofran ODT] 4 mg PO Q6 #7 odt Referrals: Kendall Fernandez MD [Primary Care Provider] - Follow up with primary Forms: [employer] (Portuguese)
[2018-10-20 15:05] LABS: BASO # 0.02 K/mm3 (0.0-2.0); BASO % 0.3 % (0.0-3.0); EOS % 0.2 % (1.5-5.0); HEMOGLOBIN 10.7 g/dL (12.0-16.0); LYMPH # 0.3 (1.2-3.4); LYMPH % 4.6 % (22.0-35.0); MEAN CORPUSCULAR HGB CONC 31.2 g/dl (31.0-37.0); MONO # 0.6 (0.1-0.6); MONO % 9.9 % (1.0-6.0); PLATELET COUNT 391 10^3/uL (120.0-450.0); RBC 5.36 10^6/uL (3.5-6.1); RED CELL DISTRIBUTION WIDTH 16.3 % (11.5-14.5); WHITE BLOOD COUNT 5.9 10^3/uL (4.5-11.0)
[2018-10-20 15:21] LABS: ALB/GLOB RATIO 1.1 (1.1-1.8); ALBUMIN 4.4 g/dL (3.0-4.8); ALT/SGPT 16 U/L (7-56); AMYLASE 133 U/L (35-125); AST/SGOT 27 U/L (14-36); BLOOD UREA NITROGEN 14 mg/dL (7-21); CALCIUM 9.7 mg/dL (8.4-10.5); GFR NON-AFRICAN AMERICAN > 60; LIPASE 82 U/L (23-300)
[2018-10-20 15:25] LABS: URINE APPEARANCE CLEAR (CLEAR); URINE BILIRUBIN NEGATIVE (NEGATIVE); URINE BLOOD LARGE (NEGATIVE); URINE COLOR YELLOW (YELLOW); URINE GLUCOSE (UA) NEGATIVE (NEGATIVE); URINE LEUKOCYTE ESTERASE TRACE Leu/uL (NEGATIVE); URINE PROTEIN 100 mg/dL (<30 mg/dL); URINE UROBILINOGEN 0.2 E.U./dL (<1 E.U./dL)
[2018-10-20 15:28] LABS: BAND 1 % (0-2); LYMPHOCYTE 6 % (22.0-35.0); MONOCYTE 6 % (1.0-6.0); NEUTROPHIL 87 % (50.0-70.0)
[2018-10-20 15:29] LABS: LARGE PLATELETS PRESENT; PLATELET ESTIMATE NORMAL (NORMAL); TROPONIN I < 0.01 ng/mL
[2018-10-20 15:41] LABS: URINE RBC TNTC /hpf (0-2); URINE WBC 0 - 2 /hpf (0-6)
[2018-10-20 16:32] VITALS: BP 112/61; PULSE 92; RESP 16; O2SAT 100
--- NOTE | 2018-10-21 16:06 | CT ---
PROCEDURE: CT Abdomen and Pelvis without Oral or IV contrast. HISTORY: left flank pain COMPARISON: None available. TECHNIQUE: Contiguous axial images of the abdomen and pelvis. No oral or IV contrast administered. Coronal and Sagittal reformats generated and reviewed. Radiation dose: Total exam DLP = 435.9 mGy-cm. This CT exam was performed using one or more of the following dose reduction techniques: Automated exposure control, adjustment of the mA and/or kV according to patient size, and/or use of iterative reconstruction technique. FINDINGS: There is limited evaluation of the solid organs without the administration of IV contrast. LOWER THORAX: No visible consolidation, pleural effusion, or pneumothorax. LIVER: At least 3 small hepatic hypodensities either consistent with cysts or too small to characterize (statistically likely cysts or hemangiomas). GALLBLADDER AND BILE DUCTS: Unremarkable unenhanced appearance. PANCREAS: Unremarkable unenhanced appearance. SPLEEN: Unremarkable unenhanced appearance. ADRENALS: 11 mm left adrenal gland nodule measures approximately -2 Hounsfield units consistent with an adenoma. The unenhanced right adrenal gland appears grossly unremarkable. KIDNEYS AND URETERS: Horseshoe kidney configuration, anatomic variant. Left parapelvic cyst/extrarenal pelvis. No hydronephrosis or obstructing renal calculus. BLADDER: The urinary bladder appears unremarkable. REPRODUCTIVE: Uterus is present and appears slightly enlarged or lobulated possibly due to fibroids. APPENDIX: The appendix appears within normal limits of caliber. No secondary signs of acute appendicitis. BOWEL: The stomach is nondistended. Lack of oral contrast limits evaluation for bowel pathology. The bowel loops appear within normal limits of caliber without evidence of intestinal obstruction. PERITONEUM: No significant free fluid. No definite free air. LYMPH NODES: No bulky lymphadenopathy identified. VASCULATURE: No significant atherosclerotic calcifications of the aorta appreciated. No aortic aneurysm. BONES: Mild degenerative changes of the spine. OTHER FINDINGS: None. IMPRESSION: At least 3 small hepatic hypodensities either consistent with cysts or too small to characterize (statistically likely cysts or hemangiomas). Horseshoe kidney configuration, anatomic variant. Left extrarenal pelvis/parapelvic cyst. No hydronephrosis or obstructing calculus evident. Probable fibroid uterus. Pelvic ultrasound may be considered for further evaluation if indicated. Additional findings as above. Preliminary impression was provided by [employer].
== END 2018-10-20 19:13 | disposition home or self-care (01) ==
LOC: ED 13:36
DX: R10.9 Unspecified abdominal pain (principal); R31.9 Hematuria, unspecified; D56.3 Thalassemia minor; Z85.72 Personal history of non-Hodgkin lymphomas
CPT/HCPCS: 74176; 80053; 81001; 82150; 82550; 83615; 83690; 84484; 85025; 87040; 87086; 96361; 96374; 96375; 99283; J1885; J2405; J7030

== ENCOUNTER 2018-10-23 13:01 | Outpatient (CLI) | payer BC | END 2018-10-23 13:02 | disposition home or self-care (01) | LOC: OPLAB 13:01 ==

== ENCOUNTER 2018-10-24 13:49 | Outpatient (CLI) | payer BC | END 2018-10-24 13:50 | disposition home or self-care (01) | LOC: OPLAB 13:49 ==

== ENCOUNTER 2018-10-25 13:51 | Outpatient (CLI) | payer BC | END 2018-10-25 13:52 | disposition home or self-care (01) | LOC: OPLAB 13:51 ==

== ENCOUNTER 2018-10-29 15:45 | Outpatient (CLI) | payer BC | END 2018-10-29 15:46 | disposition home or self-care (01) | LOC: OPLAB 15:45 ==

== ENCOUNTER 2018-11-19 13:29 | Outpatient (CLI) | payer BC | END 2018-11-19 13:30 | disposition home or self-care (01) | LOC: OPLAB 13:29 ==

== ENCOUNTER 2018-11-20 13:26 | Outpatient (CLI) | payer BC | END 2018-11-20 13:27 | disposition home or self-care (01) | LOC: OPLAB 13:26 ==

== ENCOUNTER 2018-11-21 15:04 | Outpatient (CLI) | payer BC | END 2018-11-21 15:05 | disposition home or self-care (01) | LOC: OPLAB 15:04 ==

== ENCOUNTER 2018-11-22 13:18 | Outpatient (CLI) | payer BC | END 2018-11-22 13:19 | disposition home or self-care (01) | LOC: LAB 13:18 ==

== ENCOUNTER 2018-12-06 15:19 | Outpatient (CLI) | payer BC | END 2018-12-06 15:20 | disposition home or self-care (01) | LOC: OPLAB 15:19 ==